=== PATIENT | male | born 1960 | race Caucasian/White ===

== ENCOUNTER → 2017-08-29 10:48 | Outpatient (CLI) | payer OTHER, SELFPAY ==
--- NOTE | 2017-08-29 10:57 | XR_ITS ---
XR sinus min 3V CLINICAL INDICATION: Chronic rhinitis, congestion ITS.REASON: CHRONIC RHINITIS ORDERING PHYSICIAN: Tushar Marlow MD PATIENT AGE: 57 years COMPARISON: None FINDINGS: There is mild mucoperiosteal thickening of the lateral wall the maxillary sinuses. No air-fluid levels are evident. No bony destructive process. IMPRESSION: Mild Ashwini periosteal thickening of the maxillary sinuses which may be due to mild sinus inflammatory changes otherwise negative
== END ==
PROVIDERS: PCP Family Medicine; Visit Provider Family Medicine
DX: J31.0 Chronic rhinitis (principal)
CPT/HCPCS: 70220

== ENCOUNTER → 2017-09-11 07:55 | Outpatient (CLI) | payer OTHER, SELFPAY ==
--- NOTE | 2017-09-11 07:59 | CT_ITS ---
CT sinus wo con CLINICAL INDICATION: Recurrent sinusitis ITS.REASON: RHINITIS, ABN PARANASAL XRAY ORDERING PHYSICIAN: Tushar Marlow MD PATIENT AGE: 57 years COMPARISON: 08/29/2017 TECHNIQUE:Axial, sagittal, and coronal images are generated and reviewed without contrast. All CT scans at the facility use one or more dose reduction, viz: automated exposure control; ma/kV adjustment per patient size (including targeted exams where dose is matched to indication; i.e. head); or iterative reconstruction technique. FINDINGS: There is moderate mucosal thickening of the posterior ethmoid air cells slightly more extensive on the right. Moderate mucosal thickening involves the right maxillary sinus posteriorly with an air-fluid level in the left maxillary sinus. The ostiomeatal complexes are patent. There are small bilateral gallo bullosa. There is rightward nasal septal deviation in inferiorly and anteriorly causing nasal canal narrowing on the right. No polyps or mass is apparent. The frontal sinuses are unremarkable. There is minimal mucosal thickening of the There is fluid noted in both mastoid sinuses. Fluid is present in the left mastoid. Fluid also noted within the middle ears on both sides and in the epitympanic region. Unremarkable orbits. Scattered small nodes are present in the neck. There is mild prominence of the adenoids. IMPRESSION: 1. Paranasal sinus disease with mucosal thickening of the ethmoid and maxillary sinus and air-fluid level left maxillary sinus. 2. Bilateral mastoid and epitympanic fluid 3. Narrowing of the right nasal canal due to septal deviation inferiorly and anteriorly
== END ==
PROVIDERS: Family Provider Family Medicine; PCP Family Medicine; Visit Provider Family Medicine
DX: J31.0 Chronic rhinitis (principal); R93.8 Abnormal findings on diagnostic imaging of other specified body structures
CPT/HCPCS: 70486

== ENCOUNTER → 2017-11-18 09:56 | Outpatient (POV) | payer OTHER, SELFPAY | PROVIDERS: Visit Provider Otolaryngology | DX: Z00.00 Encounter for general adult medical examination without abnormal findings (principal) ==

== ENCOUNTER → 2018-01-12 07:41 | Outpatient (CLI) | payer OTHER, SELFPAY ==
--- NOTE | 2018-01-12 07:56 | MR_ITS ---
MR knee RT wo con HISTORY: Knee pain and swelling with popping, medial pain ITS.REASON: RIGHT KNEE PAIN ORDERING PHYSICIAN: Rajiv Juarez PATIENT AGE: 57 years Comparison: None TECHNIQUE: Standard multiplanar multiecho sequences are performed without contrast. FINDINGS: The cruciate ligaments, collateral ligaments, patellar tendon, and quadriceps tendon are intact. A linear area of increased T2 signal involves the nature of 1 of the lateral meniscus but only needs the tibial articular surface on one image and does not meet strict MRI criteria for a meniscal tear not readily apparent in the orthogonal plane. Abnormal signal intensity involve the anterior horn of the medial meniscus with diffuse increased T2 signal. The meniscus has an abnormal contour centrally along the central margin of the meniscus is somewhat extruded medially as well. In addition, there is abnormal signal involving the posterior horn of the medial meniscus consistent with a nondisplaced longitudinal tear The patellar cartilage is well preserved. There is a small knee joint effusion. No abnormal bone marrow signal intensity. IMPRESSION: 1. Complex tear involves the anterior horn of the medial meniscus. 2. Oblique/longitudinal nondisplaced tear involves the posterior horn of the medial meniscus. 3. Grade 2 signal intensity of the anterior horn of the lateral meniscus but does not meet strict MRI criteria for meniscal tear. 4. Knee joint effusion IMPRESSION:
== END ==
PROVIDERS: Family Provider Family Medicine; PCP Family Medicine; Visit Provider Orthopaedic Surgery
DX: M25.561 Pain in right knee (principal)
CPT/HCPCS: 73721

== ENCOUNTER → 2018-11-17 09:57 | Outpatient (POV) | payer OTHER, SELFPAY | PROVIDERS: Visit Provider Dermatology | DX: Z00.00 Encounter for general adult medical examination without abnormal findings (principal) ==

== ENCOUNTER 2019-01-02 13:45 | Observation (INO) ==
--- NOTE | 2019-01-02 13:56 | Emergency Department Note ---
ED Disposition Clinical Impression: Angina pectoris Disposition: Admitted As Inpatient Condition on Discharge: Good Referrals: Provider,Referral, [Primary Care Provider] - - Critical Care Critical Care Time: No Attestation: On , the high probability of a clinically significant, sudden or life threa tening deterioration of the following system(s) required my full and direct attention, intervention and personal management. The time I documented below is in addition to time spent performing reported procedures but includes the following listed in this critical care notation. Medical Decision Making - Juan Inquiry Pt receiving controlled substance: No Vital Signs: 01/02/19 13:49 01/02/19 14:53 Temperature 98.0 F Temperature Source Oral Pulse Rate [Right Radial] 72 68 Respiratory Rate 18 18 Blood Pressure [Right Arm] 137/78 133/76 Blood Pressure Mean [Right Arm] 97 95 Blood Pressure Source [Right Arm] Automatic Cuff Automatic Cuff Blood Pressure Position [Right Arm] Sitting Sitting 02 Sat by Pulse Oximetry 97 96 Oxygen Delivery Method Room Air Room Air - Lab Data Lab Results 01/02/19 13:50: WBC 9.0, RBC 4.92, Hgb 15.0, Hct 43.9, MCV 89.1, MCH 30.4, MCHC 34.2, RDW 13.0, Plt Count 262, MPV 7.3 L, Neut % (Auto) 55.9, Lymph % (Auto) 32.8, [place] % (Auto) 6.3, Eos % (Auto) 4.3, Baso % (Auto) 0.7, Neut # (Auto) 5.0, Lymph # (Auto) 3.0, [place] # (Auto) 0.6, Eos # (Auto) 0.4, Baso # (Auto) 0.1 01/02/19 13:50: Sodium 139, Potassium 4.0, Chloride 103, Carbon Dioxide 28, Anion Gap 12.0, BUN 17, Creatinine 1.26, Estimated Creat Clear 102, Estimated GFR 59, Est GFR ( Amer) 71, Glucose 110 H, Calcium 9.4, Troponin I < 0.02 Result diagrams: 01/02/19 13:50 01/02/19 13:50 Orders (Tests/Meds): ED MEDICATIONS Generic Name Dose Route Start Last Admin Trade Name Freq PRN Reason Stop Dose Admin Enoxaparin Sodium 110 mg 01/02/19 21:00 Lovenox 120mg/0.8ml Syringe SQ 02/01/19 20:59 BID VANDANA Nitroglycerin 1 gm 01/02/19 15:00 Nitroglycerin 1 Inch Oint Udp TD 02/01/19 14:59 Q6H VANDANA Discontinued Medications Generic Name Dose Route Start Last Admin Trade Name Pippa PRN Reason Stop Dose Admin Aspirin 243 mg 01/02/19 13:56 01/02/19 14:07 Aspirin 81mg Chewable Tablet PO 01/02/19 13:57 243 mg ONCE ONE Administration - Radiology Data #1 Image(s): Chest Image Reviewed: Yes I reviewed the patient's radiology image Preliminary Findings: Normal/NAD - ECG Data Tracing #1 EKG interpreted by Mikel Lobo MD: Rhythm: sinus Rate: 69 [place]: normal Ectopy: none Conduction: First-degree AV block ST Segment Changes: none T Wave Changes: none Q Waves: Septal, old No evidence of acute ischemia or injury - Physician Consults Physician Consulted: Kirt Time: 14:53 Reason -: Cardiology Eval/Care, Neurological Eval/Care Comment/Response: Admit. Start on Lovenox and Nitropaste. Plan is for heart cath Friday. Additional Consult: Bertha Marlow Time: 14:59 Reason -: Admission Comment/Response: Agrees to admit the patient to the hospital. We discussed the patient's clinical information, including history, exam, laboratory and radiology results and ED course. Per hospital procedure, I will write temporary bridge inpatient orders on the patient. Specific orders requested by the admitting physician: Per cardiology - Reevaluation(s) Time: 14:40 Reevaluation #1: Intermittent brief chest pains and shortness of breath. No current chest pain. - ARIANNA Score for Non-Stemi Age of Patient: 50-59 years old Heart Rate: 70-89 bpm Systolic Blood Pressure: 120-139 mmhg Serum Creatinine: 1.20-1.59 mg/dl CHF [place] Class: I-No CHF Other Risk Factors: None Non-Stemi Risk Score: 94 General Adult HPI - General Stated complaint: chest pain Time Seen by Provider: 01/02/19 14:15 - History of Present Illness HPI narrative: States developed chest pressure and shortness of breath at 11 [address] Pressure lasted for couple of hours. Took 2 nitroglycerin and 15 minutes after the second when the pain went away while on the way here. Has had some intermittent shortness of breath since then. Chest discomfort felt similar to when he had a heart attack in July. He had been visiting [place] when he had his heart attack and was treated there. He says he had one stent placed [place]". States he was told he also has some less severe blockages that would need to be addressed in the future. He has had some intermittent chest pain since then but not to this extent. He sees Dr. Moralez here and has been seen within the past week or so. Prior to having his heart attack he had no known heart problems. He did have hyperlipidemia. He is a former smoker. His father has had heart disease. Father had heart attacks at about his age. - Related Data Home Medications Medication Instructions Recorded Confirmed aspirin 81 mg tablet,delayed 81 mg PO DAILY 07/28/18 01/02/19 release lisinopril 5 mg tablet 5 mg PO DAILY 07/28/18 01/02/19 metoprolol tartrate 25 mg tablet 25 mg PO BID 07/28/18 01/02/19 nitroglycerin 0.4 mg sublingual 0.4 mg SUBLINGUAL Q5-15M PRN 07/28/18 01/02/19 tablet pantoprazole 40 mg tablet,delayed 40 mg PO DAILY 07/28/18 01/02/19 release ticagrelor 90 mg tablet 90 mg PO BID 07/28/18 01/02/19 coenzyme Q10 100 mg capsule 100 mg PO DAILY 08/25/18 01/02/19 rosuvastatin 20 mg tablet 20 mg PO DAILY 12/22/18 01/02/19 Isosorbide Mononitrate [Imdur 30mg 30 mg PO DAILY 01/02/19 01/02/19 ER tablet] Montelukast Sodium [Singulair 10mg 10 mg PO PM 01/02/19 01/02/19 tablet] Allergies Allergy/AdvReac Type Severity Reaction Status Date / Time No Known Allergies Allergy Verified 12/22/18 10:47 [facility] History - Hepatitis A Screen Attestation statement:: This patient has been screened for Hepatitis A risk factors. I have reviewed the patient's past medical history: Yes Medical History: Reports:: Coronary Artery Disease, Gastroesophageal Reflux Disease(GERD), Hyperlipidemia, Hypertension, Myocardial Infarction Laterality Cases: Other Surgeries: Yes: Cardiac Catheterization, Coronary Stent - Social History Smoking Status: Former smoker Alcohol Intake: never Substance Use Type: denies use Occupational Status: employed Family Hx:: Coronary Artery Disease, Heart Attack Comment: Father-CAD,AR@58 ROS Obtained: Yes All systems reviewed & no additional complaints - Cardiovascular Cardiovascular: Reports chest pain, Denies diaphoresis - Respiratory Respiratory: Yes dyspnea - Gastrointestinal Gastrointestingal: Denies: abdominal pain, nausea, vomiting Physical Exam - General General appearance: alert, in no apparent distress - Head Head exam: atraumatic, normocephalic - Eye Eye exam: Present: normal appearance, EOMI - ENT ENT exam: Present: mucous membranes moist - Neck Neck exam: Present: normal inspection, trachea midline - Chest Chest inspection: Present: normal inspection, symmetric chest wall rise - Respiratory Respiratory exam: Present: normal lung sounds bilaterally. Absent: respiratory distress - Cardiovascular Cardiovascular exam: Present: regular rate, normal rhythm, normal heart sounds - Abdominal Exam Abdominal exam: Present: soft, normal bowel sounds. Absent: distention, tenderness - Extremities Exam Extremities exam: Present: normal inspection, full ROM. Absent: tenderness, calf tenderness - Neurological Exam Neurological exam: Present: alert, oriented X3 - Psychiatric Psychiatric exam: Present: normal affect, normal mood - Skin Skin exam: Present: warm, dry
[2019-01-02 14:13] LABS: Basophils # 0.1 K/mm3 (0-0.2); Basophils % 0.7 % (0.1-2.0); Eosinophils # 0.4 K/mm3 (0.0-0.4); Eosinophils % 4.3 % (0.1-12.0); Hematocrit 43.9 % (42.0-52.0); Lymphocytes % 32.8 % (10-50); Mean Corpuscular HGB Conc 34.2 g/dL (31.8-35.4); Mean Corpuscular Volume 89.1 fl (80-94); Mean Platelet Volume 7.3 fl (7.4-10.4); Monocytes # 0.6 K/mm3 (0.1-1.0); Monocytes % 6.3 % (1.7-9.3); Neutrophils % 55.9 % (37.0-80.0); Platelet Count 262 K/mm3 (142-424); Red Blood Count 4.92 M/mm3 (4.60-6.20)
[2019-01-02 14:19] LABS: Blood Urea Nitrogen 17 mg/dL (7-18); Calcium 9.4 mg/dL (8.5-10.1); Carbon Dioxide 28 mmol/L (21.0-32.0); Chloride 103 mmol/L (98-107); Glucose 110 mg/dL (74-106); Sodium 139 mmol/L (136-145)
--- NOTE | 2019-01-03 09:21 | Pharmacy Consult Notes ---
[facility] Pharmacy VTE Monitoring - Patient Demographics Admission date: 01/02/19 Report Date: 01/03/19 Time: 09:21 Allergies/Adverse Reactions: Patient Allergies No Known Allergies Allergy (Verified 12/22/18 10:47) Height: 1.91 m Weight: 110.393 kg Patient Problems: Current Active Problems Angina pectoris (Acute) - VTE Risk Labs: VTE Related Lab Results Hgb 15.0 g/dL (14.1-18.0) 01/02/19 13:50 Hct 43.9 % (42.0-52.0) 01/02/19 13:50 Plt Count 262 K/mm3 (142-424) 01/02/19 13:50 BUN 17 mg/dL (7-18) 01/02/19 13:50 Creatinine 1.26 mg/dL (0.70-1.30) 01/02/19 13:50 Estimated Creat Clear 102 mL/min (50-200) 01/02/19 13:50 Was VTE Risk Assessment Performed: Yes VTE Score: 2 VTE Risk Level: Low Risk - Prophylaxis VTE Prophylaxis Ordered?: Yes Types of VTE Prophylaxis: Pharmacological Pharmacologic Type: Enoxaparin
--- NOTE | 2019-01-03 12:27 | Progress Note ---
Internal Medicine - PN: Subj *Date: 01/03/19 *Time: 12:23 Interval history: This 58-year-old white male has known coronary artery disease. He was being active yesterday out in the field with his hunting dog. He was driving back from that experience and began to have substernal chest pain. He felt short of breath. He did not have diaphoresis. He did not have radiation to the jaw. He took several doses of Dr. flores, initially with no improvement but by the time he arrived in the emergency room he was not having pain. His chest discomfort did remind him of his symptoms when he had a heart attack in July 2018 while he was out [place] in [place]. He required a stent to the LAD at that time. He has been followed subsequently by Dr. Moralez. Dr. Moralez is aware of this admission and plans to do cardiac catheterization in the morning with possible additional stent placements. The patient has been quite comfortable since his admission and is in no acute distress at present. Exam Vital signs and Labs for Last 24 Hours: Temp Pulse Resp BP Pulse Ox 98.0 F 69 18 146/80 H 97 01/03/19 08:00 01/03/19 08:00 01/03/19 08:00 01/03/19 08:00 01/03/19 08:00 Laboratory Results - last 24 hr 01/02/19 13:50: WBC 9.0, RBC 4.92, Hgb 15.0, Hct 43.9, MCV 89.1, MCH 30.4, MCHC 34.2, RDW 13.0, Plt Count 262, MPV 7.3 L, Neut % (Auto) 55.9, Lymph % (Auto) 32.8, [place] % (Auto) 6.3, Eos % (Auto) 4.3, Baso % (Auto) 0.7, Neut # (Auto) 5.0, Lymph # (Auto) 3.0, [place] # (Auto) 0.6, Eos # (Auto) 0.4, Baso # (Auto) 0.1 01/02/19 13:50: Sodium 139, Potassium 4.0, Chloride 103, Carbon Dioxide 28, Anion Gap 12.0, BUN 17, Creatinine 1.26, Estimated Creat Clear 102, Estimated GFR 59, Est GFR ( Amer) 71, Glucose 110 H, Calcium 9.4, Troponin I < 0.02 01/02/19 18:30: Troponin I < 0.02 01/02/19 21:30: Troponin I < 0.02 I & O for Last 24 hours: Intake & Output 01/01/19 01/02/19 01/03/19 01/04/19 11:59 11:59 11:59 11:59 Intake Total 730 / 730 Balance 730 / 730 Weight 243 lb 5.998 oz
--- NOTE | 2019-01-03 12:32 | History & Physical Report ---
*Admission Date: 01/02/19 *Chief complaint: Chest pain *History of present illness: This 58-year-old white male has known coronary artery disease. He was being active yesterday, out in the field with his hunting dog. He was driving back from that experience and began to have substernal chest pain. He felt short of breath. He did not have diaphoresis. He did not have radiation to the jaw. He took several doses of nitroglycerin, initially with no improvement but by the time he arrived in the emergency room he was not having pain. His chest discomfort did remind him of his symptoms when he had a heart attack in July 2018 while he was [place] in [place]. At that event he required airlift ing to a hospital for stenting of the LAD. He has been followed subsequently by Dr. Álvaro Moralez. Dr. Moralez is aware of this admission and plans to do cardiac catheterization in the morning with possible stent placement. The patient has been quite comfortable since his admission and is in no acute distress at present. [facility] History Medical History: Reports:: Coronary Artery Disease, Gastroesophageal Reflux Disease(GERD), Hyperlipidemia, Hypertension, Myocardial Infarction Denies:: Cancer, Diabetes Mellitus Type 1, Diabetes Mellitus Type 2, MRSA *Have you ever received a pneumonia vaccine?: No *Have you received a flu vaccine this season?: Yes Laterality Cases: Right: Arthroscopy Knee (01/2018) Other Surgeries: Yes: Cardiac Catheterization, Coronary Stent (07/2018), Hernia Repair (2007), Other (KNEE SX,) Amputation: No - *Social History Smoking Status: Former smoker (13 years, up to 4ppd, quit 30 yrs ago) Tobacco Type: cigarettes # Packs/Day (cigarettes): 1 #Yrs smoked (if former smoker): 5 Smoking End Date: 30 YRS AGO Alcohol Intake: never Substance Use Type: denies use *Occupational Status:: employed Housing: house Household Members: spouse *Travel in the last 8 weeks: None Family Hx:: Coronary Artery Disease, Heart Attack Review of Systems - Constitutional Denies body ache(s), Denies chills - Eyes Denies blurry vision, Denies change in vision - ENT Denies difficulty swallowing - *Cardiovascular Reports chest pain, Reports shortness of breath, Denies irregular heart rhythm - *Respiratory Denies chest congestion, Denies cough - *Gastrointestinal Denies abdominal pain, Denies change in bowel habits - *Genitourinary Denies difficulty urinating - *Musculoskeletal Denies abnormal walking, Denies body aches - *Neurologic Denies unsteadiness - Psychiatric Denies abnormal sleep pattern, Denies anxiety Meds Home Medications Medication Instructions Recorded Confirmed Type aspirin 81 mg tablet,delayed 81 mg PO DAILY 07/28/18 01/02/19 History release lisinopril 5 mg tablet 5 mg PO DAILY 07/28/18 01/02/19 History metoprolol tartrate 25 mg tablet 25 mg PO BID 07/28/18 01/02/19 History nitroglycerin 0.4 mg sublingual 0.4 mg SUBLINGUAL Q5-15M PRN 07/28/18 01/02/19 History tablet pantoprazole 40 mg tablet,delayed 40 mg PO DAILY 07/28/18 01/02/19 History release ticagrelor 90 mg tablet 90 mg PO BID 07/28/18 01/02/19 History coenzyme Q10 100 mg capsule 100 mg PO DAILY 08/25/18 01/02/19 History rosuvastatin 20 mg tablet 20 mg PO DAILY 12/22/18 01/02/19 History Montelukast Sodium [Singulair 10mg 10 mg PO PM 01/02/19 01/02/19 History tablet] RX: Isosorbide Mononitrate [Imdur 30 mg PO DAILY 01/02/19 01/02/19 History 30mg ER tablet] Allergies Allergy/AdvReac Type Severity Reaction Status Date / Time No Known Allergies Allergy Verified 12/22/18 10:47 Exam Vital signs and Labs for Last 24 Hours: Temp Pulse Resp BP Pulse Ox 98.0 F 69 18 146/80 H 97 01/03/19 08:00 01/03/19 08:00 01/03/19 08:00 01/03/19 08:00 01/03/19 08:00 Laboratory Results - last 24 hr 01/02/19 13:50: WBC 9.0, RBC 4.92, Hgb 15.0, Hct 43.9, MCV 89.1, MCH 30.4, MCHC 34.2, RDW 13.0, Plt Count 262, MPV 7.3 L, Neut % (Auto) 55.9, Lymph % (Auto) 32.8, [place] % (Auto) 6.3, Eos % (Auto) 4.3, Baso % (Auto) 0.7, Neut # (Auto) 5.0, Lymph # (Auto) 3.0, [place] # (Auto) 0.6, Eos # (Auto) 0.4, Baso # (Auto) 0.1 01/02/19 13:50: Sodium 139, Potassium 4.0, Chloride 103, Carbon Dioxide 28, Anion Gap 12.0, BUN 17, Creatinine 1.26, Estimated Creat Clear 102, Estimated GFR 59, Est GFR ( Amer) 71, Glucose 110 H, Calcium 9.4, Troponin I < 0.02 01/02/19 18:30: Troponin I < 0.02 01/02/19 21:30: Troponin I < 0.02 I & O for Last 24 hours: Intake & Output 01/01/19 01/02/19 01/03/19 01/04/19 11:59 11:59 11:59 11:59 Intake Total 730 / 730 Balance 730 / 730 Weight 243 lb 5.998 oz - Constitutional no acute distress - *Routine HEENT Exam Head: Present: normocephalic Eye: Present: PERRL ENT: Present: mucous membranes moist - *Routine Neck Exam Present: supple. Absent: carotid bruit - Routine Chest/Breast/Axilla Exam Chest wall: Absent: tenderness Axillae: Absent: lymphadenopathy - *Routine Respiratory Exam Present: CTA bilaterally - *Routine Cardiovascular Exam Present: RRR (Distant heart sounds) - *Routine Abdominal Exam Present: soft. Absent: tenderness - *Routine Extremities Exam Absent: edema - *Routine Skin Exam Present: intact - *Routine Neurological Exam Present: alert, oriented X3 H&P: Result - Imaging and Cardiology EKG Status: image reviewed by me Assessment and Plan (1) Angina pectoris Current visit: Yes Status: Acute Category: Medical Code(s): I20.9 - Angina pectoris, unspecified (2) CAD (coronary artery disease) Current visit: No Status: Chronic Qualifiers: Coronary Disease-Associated Artery/Lesion type: [place] artery [place] vs. transplanted heart: [place] heart Associated angina: with other forms of angina Qualified Code(s): I25.118 - Atherosclerotic heart disease of [place] coronary artery with other forms of angina pectoris Category: Medical Code(s): I25.10 - Atherosclerotic heart disease of [place] coronary artery without angina pectoris (3) HLD (hyperlipidemia) Current visit: No Status: Chronic Qualifiers: Hyperlipidemia type: mixed hyperlipidemia Qualified Code(s): E78.2 - Mixed hyperlipidemia Category: Medical Code(s): E78.5 - Hyperlipidemia, unspecified (4) HTN (hypertension) Current visit: No Status: Chronic Qualifiers: Hypertension type: essential hypertension Qualified Code(s): I10 - Essential (primary) hypertension Category: Medical Code(s): I10 - Essential (primary) hypertension - Assessment and plan all Dx Assessment and Plan for all problems:: See orders. Dr. Moralez is aware of his admission. Cardiac catheterization is planned for the morning.
--- NOTE | 2019-01-04 08:28 | Consult Report ---
History of Present Illness Consult date: 01/04/19 Requesting physician: Tushar Marlow Consult reason: chest pain Chief complaint: chest pain Additional Medical History:: 1. CAD A. MO, 07/2018, ANTHONY to LAD 2. HTN 3. HLD 4. GERD History of present illness: This 58-year-old white male has known coronary artery disease. He was being active yesterday, out in the field with his hunting dog. He was driving back from that experience and began to have substernal chest pain. He felt short of breath. He did not have diaphoresis. He did not have radiation to the jaw. He took several doses of nitroglycerin, initially with no improvement but by the time he arrived in the emergency room he was not having pain. His chest discomfort did remind him of his symptoms when he had a heart attack in July 2018 while he was hunting [facility] in [place]. At that event he required airlifting to a hospital for stenting of the LAD. He has been followed subsequently by Dr. Álvaro Moralez. Dr. Moralez is aware of this admission and plans to do cardiac catheterization in the morning with possible stent placement. The patient has been quite comfortable since his admission and is in no acute distress at present The above per Dr. Marlow No further chest pain since admission. Pt was offered repeat C earlier this year for similar symptoms but wanted to continue medical therapy. This time he is willing to proceed with cardiac cath to evaluate his remaining blockages noted on prior cath at the time of his MO. EKG this admission is NSR with no acute ST segment changes. Troponins have returned normal X 3. [facility] History Medical History: Reports:: Coronary Artery Disease, Gastroesophageal Reflux Disease(GERD), Hyperlipidemia, Hypertension, Myocardial Infarction Denies:: Cancer, Diabetes Mellitus Type 1, Diabetes Mellitus Type 2, MRSA *Have you ever received a pneumonia vaccine?: No *Have you received a flu vaccine this season?: Yes Laterality Cases: Right: Arthroscopy Knee (01/2018) Other Surgeries: Yes: Cardiac Catheterization, Coronary Stent (07/2018), Hernia Repair (2007), Other (KNEE SX,) Amputation: No - *Social History Smoking Status: Former smoker (13 years, up to 4ppd, quit 30 yrs ago) Tobacco Type: cigarettes # Packs/Day (cigarettes): 1 #Yrs smoked (if former smoker): 5 Smoking End Date: 30 YRS AGO Alcohol Intake: never Substance Use Type: denies use *Occupational Status:: employed Housing: house Household Members: spouse *Travel in the last 8 weeks: None Family Hx:: Coronary Artery Disease, Heart Attack Meds Home Medications Medication Instructions Recorded Confirmed Type aspirin 81 mg tablet,delayed 81 mg PO DAILY 07/28/18 01/02/19 History release lisinopril 5 mg tablet 5 mg PO DAILY 07/28/18 01/02/19 History metoprolol tartrate 25 mg tablet 25 mg PO BID 07/28/18 01/02/19 History nitroglycerin 0.4 mg sublingual 0.4 mg SUBLINGUAL Q5-15M PRN 07/28/18 01/02/19 History tablet pantoprazole 40 mg tablet,delayed 40 mg PO DAILY 07/28/18 01/02/19 History release ticagrelor 90 mg tablet 90 mg PO BID 07/28/18 01/02/19 History coenzyme Q10 100 mg capsule 100 mg PO DAILY 08/25/18 01/02/19 History rosuvastatin 20 mg tablet 20 mg PO DAILY 12/22/18 01/02/19 History Isosorbide Mononitrate [Imdur 30mg 30 mg PO DAILY 01/02/19 01/02/19 History ER tablet] Montelukast Sodium [Singulair 10mg 10 mg PO PM 01/02/19 01/02/19 History tablet] Allergies Allergy/AdvReac Type Severity Reaction Status Date / Time No Known Allergies Allergy Verified 12/22/18 10:47 Review of Systems - *Cardiovascular Reports chest pain, Reports shortness of breath - *Respiratory Reports shortness of breath, Denies cough - *Gastrointestinal Denies abdominal pain, Denies vomiting - *Genitourinary Denies blood in urine - *Musculoskeletal Denies joint pain, Denies back pain - *Neurologic Denies abnormal walking, Denies unsteadiness Exam Vital signs and Labs for Last 24 Hours: Temp Pulse Resp BP Pulse Ox 98.1 F 57 L 18 110/67 95 01/04/19 04:00 01/04/19 04:00 01/04/19 04:00 01/04/19 04:00 01/04/19 04:00 I & O for Last 24 hours: Intake & Output 01/01/19 01/02/19 01/03/1919 11:59 11:59 11:59 11:59 Intake Total 730 / 730 480 / 480 Balance 730 / 730 480 / 480 Weight 243 lb 5.998 oz 243 lb 5.998 oz - *Routine HEENT Exam Head: Present: normocephalic Eye: Present: EOMI, PERRL ENT: Present: mucous membranes moist - *Routine Neck Exam Present: supple. Absent: JVD, carotid bruit - *Routine Respiratory Exam Present: CTA bilaterally. Absent: accessory muscle use, rales, rhonchi, wheezes - *Routine Cardiovascular Exam Present: RRR. Absent: murmur, gallop, rubs - *Routine Abdominal Exam Present: soft. Absent: tenderness, distended, guarding - *Routine Extremities Exam Absent: edema, calf tenderness - *Routine Neurological Exam Present: alert, oriented X3, moving all extremities Assessment and Plan (1) Angina pectoris Current visit: Yes Status: Acute Category: Medical Code(s): I20.9 - Angina pectoris, unspecified (2) CAD (coronary artery disease) Current visit: No Status: Chronic Qualifiers: Qualified Code(s): I25.118 - Atherosclerotic heart disease of [place] coronary artery with other forms of angina pectoris Category: Medical Code(s): I25.10 - Atherosclerotic heart disease of [place] coronary artery without angina pectoris (3) HLD (hyperlipidemia) Current visit: No Status: Chronic Qualifiers: Qualified Code(s): E78.2 - Mixed hyperlipidemia Category: Medical Code(s): E78.5 - Hyperlipidemia, unspecified (4) HTN (hypertension) Current visit: No Status: Chronic Qualifiers: Qualified Code(s): I10 - Essential (primary) hypertension Category: Medical Code(s): I10 - Essential (primary) hypertension - Assessment and plan all Dx Assessment and Plan for all problems:: 1. Recurrent angina pectoris despite DAPT and two anti-anginal meds in a patient with known residual CAD after ANTHONY to LAD at time of MO in 07/2018. Recommend [facility] to reassess CAD today. 2. Further recommendations to follow.
--- NOTE | 2019-01-04 08:33 | Progress Note ---
Internal Medicine - PN: Subj *Date: 01/04/19 *Time: 08:31 Interval history: Patient did admit to chest pain which she describes as pressure about 5 AM this morning. He states he was somewhat short of breath with this. He is comfortable at present. He had a good day yesterday with periodic chest discomfort as above. He ate without difficulty. He has been up in the room without problems. Cardiology has seen him now and plans for cardiac cath. Exam Vital signs and Labs for Last 24 Hours: Temp Pulse Resp BP Pulse Ox 98.1 F 57 L 18 110/67 95 01/04/19 04:00 01/04/19 04:00 01/04/19 04:00 01/04/19 04:00 01/04/19 04:00 I & O for Last 24 hours: Intake & Output 01/01/19 01/02/19 01/03/19 01/04/19 11:59 11:59 11:59 11:59 Intake Total 730 / 730 480 / 480 Balance 730 / 730 480 / 480 Weight 243 lb 5.998 oz 243 lb 5.998 oz - Constitutional no acute distress Comments: He has eaten breakfast. He is in no acute distress and appears comfortable. - *Routine Respiratory Exam Present: CTA bilaterally (Anteriorly and posteriorly) - *Routine Cardiovascular Exam Present: RRR - *Routine Abdominal Exam Present: soft, normoactive bowel sounds. Absent: tenderness - *Routine Extremities Exam Absent: edema, calf tenderness - *Routine Neurological Exam Present: alert, oriented X3 Assessment and Plan (1) Angina pectoris Current visit: Yes Status: Acute Category: Medical Code(s): I20.9 - Angina pectoris, unspecified (2) CAD (coronary artery disease) Current visit: No Status: Chronic Qualifiers: Coronary Disease-Associated Artery/Lesion type: [place] artery [place] vs. transplanted heart: [place] heart Associated angina: with other forms of angina Qualified Code(s): I25.118 - Atherosclerotic heart disease of [place] coronary artery with other forms of angina pectoris Category: Medical Code(s): I25.10 - Atherosclerotic heart disease of [place] coronary artery without angina pectoris (3) HLD (hyperlipidemia) Current visit: No Status: Chronic Qualifiers: Hyperlipidemia type: mixed hyperlipidemia Qualified Code(s): E78.2 - Mixed hyperlipidemia Category: Medical Code(s): E78.5 - Hyperlipidemia, unspecified (4) HTN (hypertension) Current visit: No Status: Chronic Qualifiers: Hypertension type: essential hypertension Qualified Code(s): I10 - Essential (primary) hypertension Category: Medical Code(s): I10 - Essential (primary) hypertension - Assessment and plan all Dx Assessment and Plan for all problems:: Patient will have a cardiac cath today
--- NOTE | 2019-01-04 19:17 | Progress Note ---
Internal Medicine - PN: Subj *Date: 01/04/19 *Time: 19:14 Interval history: DATE OF CATHETERIZATION:01/04/2019 12:23 PM PROCEDURES: 1. Left heart catheterization 2. Left ventriculogram 3. Selective coronary angiogram 4. Drug-eluting stent deployment to the mid circumflex artery 5. Drug-eluting stent deployment to the mid LAD He is stable and comfortable status post his stenting and catheterization. He is anxious to go home and cardiology said he could be discharged. He has shown some sinus variability on the monitor with variation in complex configuration. Dr. Marlow recommended an overnight stay and discharge in the morning. He and his are comfortable with this. Exam Vital signs and Labs for Last 24 Hours: Temp Pulse Resp BP Pulse Ox 98.1 F 74 16 119/59 L 96 01/04/19 08:22 01/04/19 19:00 01/04/19 19:00 01/04/19 19:00 01/04/19 19:00 Laboratory Results - last 24 hr 01/04/19 12:28: Activated Clotting Time > 400 H* I & O for Last 24 hours: Intake & Output 01/02/19 01/03/19 01/04/19 01/05/19 11:59 11:59 11:59 11:59 Intake Total 730 / 730 720 / 720 240 / 240 Balance 730 / 730 720 / 720 240 / 240 Weight 243 lb 5.998 oz 243 lb 5.998 oz - Constitutional no acute distress - *Routine Respiratory Exam Present: CTA bilaterally. Absent: respiratory distress - *Routine Cardiovascular Exam Present: RRR Comments: But with monitor variability as mentioned above. EKG was obtained and is good. - *Routine Extremities Exam Absent: edema Assessment and Plan (1) Angina pectoris Current visit: Yes Status: Acute Category: Medical Code(s): I20.9 - Angina pectoris, unspecified (2) CAD (coronary artery disease) Current visit: No Status: Chronic Qualifiers: Coronary Disease-Associated Artery/Lesion type: [place] artery [place] vs. transplanted heart: [place] heart Associated angina: with other forms of angina Qualified Code(s): I25.118 - Atherosclerotic heart disease of [place] coronary artery with other forms of angina pectoris Category: Medical Code(s): I25.10 - Atherosclerotic heart disease of [place] coronary artery without angina pectoris (3) HLD (hyperlipidemia) Current visit: No Status: Chronic Qualifiers: Hyperlipidemia type: mixed hyperlipidemia Qualified Code(s): E78.2 - Mixed hyperlipidemia Category: Medical Code(s): E78.5 - Hyperlipidemia, unspecified (4) HTN (hypertension) Current visit: No Status: Chronic Qualifiers: Hypertension type: essential hypertension Qualified Code(s): I10 - Essential (primary) hypertension Category: Medical Code(s): I10 - Essential (primary) hypertension - Assessment and plan all Dx Assessment and Plan for all problems:: Observe overnight post procedure. Likely discharge in the morning.
[2019-01-05 05:56] LABS: Basophils % 0.4 % (0.1-2.0); Eosinophils # 0.2 K/mm3 (0.0-0.4); Eosinophils % 3.1 % (0.1-12.0); Hematocrit 43.8 % (42.0-52.0); Hemoglobin 15.1 g/dL (14.1-18.0); Lymphocytes # 2.3 K/mm3 (0.7-4.5); Lymphocytes % 28.7 % (10-50); Mean Corpuscular HGB Conc 34.5 g/dL (31.8-35.4); Mean Corpuscular Volume 89.7 fl (80-94); Monocytes # 0.6 K/mm3 (0.1-1.0); Monocytes % 7.6 % (1.7-9.3); Neutrophils # 4.7 K/mm3 (1.8-7.8); Neutrophils % 60.2 % (37.0-80.0); Platelet Count 235 K/mm3 (142-424); Red Blood Count 4.89 M/mm3 (4.60-6.20); White Blood Count 7.8 K/mm3 (4.8-10.8)
[2019-01-05 06:02] LABS: Anion Gap 12.4 mEq/L (5-15); Calcium 9.2 mg/dL (8.5-10.1)
--- NOTE | 2019-01-05 08:31 | Progress Note ---
Subjective Date: 01/05/19 Time: 08:26 Principal diagnosis: UAP, s/p stenting Interval history: 58 yo WM in bed in NAD. No chest pain or SOA. Telemetry shows NSR with PAC's, couplets and triplets and PVC's. Wants to go home. Exam Vital signs and Labs for Last 24 Hours: Temp Pulse Resp BP Pulse Ox 98.6 F 70 18 131/81 99 01/05/19 07:44 01/05/19 07:58 01/05/19 07:44 01/05/19 07:44 01/05/19 07:44 Laboratory Results - last 24 hr 01/04/19 12:28: Activated Clotting Time > 400 H* 01/05/19 05:45: WBC 7.8, RBC 4.89, Hgb 15.1, Hct 43.8, MCV 89.7, MCH 30.9, MCHC 34.5, RDW 13.0, Plt Count 235, MPV 7.0 L, Neut % (Auto) 60.2, Lymph % (Auto) 28.7, [place] % (Auto) 7.6, Eos % (Auto) 3.1, Baso % (Auto) 0.4, Neut # (Auto) 4.7, Lymph # (Auto) 2.3, [place] # (Auto) 0.6, Eos # (Auto) 0.2, Baso # (Auto) 0.0 01/05/19 05:45: Sodium 140, Potassium 4.4, Chloride 104, Carbon Dioxide 28, Anion Gap 12.4, BUN 16, Creatinine 1.05, Estimated Creat Clear 120, Estimated GFR 73, Est GFR ( Amer) 88 D, Glucose 99, Calcium 9.2 I & O for Last 24 hours: Intake & Output 01/02/19 01/03/19 01/04/19 01/05/19 11:59 11:59 11:59 11:59 Intake Total 730 / 730 720 / 720 950 / 950 Output Total 450 / 450 Balance 730 / 730 720 / 720 500 / 500 Weight 243 lb 5.998 oz 243 lb 5.998 oz 243 lb - *Routine HEENT Exam Head: Present: normocephalic Eye: Present: EOMI, PERRL ENT: Present: mucous membranes moist - *Routine Respiratory Exam Present: CTA bilaterally. Absent: accessory muscle use, rales, rhonchi, wheezes - *Routine Cardiovascular Exam Present: RRR. Absent: murmur, gallop, rubs - *Routine Extremities Exam Absent: edema, calf tenderness - *Routine Neurological Exam Present: alert, oriented X3, moving all extremities Progress Note: A&P (1) Angina pectoris Status: Acute Current Visit: Yes (2) CAD (coronary artery disease) Status: Chronic Current Visit: No (3) HLD (hyperlipidemia) Status: Chronic Current Visit: No (4) HTN (hypertension) Status: Chronic Current Visit: No Assessment and Plan for All Diagnoses:: 1. Continue ASA, Brilinta, Isosorbide, lisinopril, metoprolol and statins as ordered. 2. OK for discharge home from cardiology standpoint. 3. With ectopy noted on telemetry, would consider 24-48 hr as outpatient to check for A. fib (not seen on telemetry here). 4. F/U in one week.
--- NOTE | 2019-01-05 09:20 | Progress Note ---
Internal Medicine - PN: Subj *Date: 01/05/19 *Time: 07:35 Interval history: Pt is sitting up in bed watching TV. He denies any pain, CP, or SOB. He is eating well and voiding normally. He is eager to go home. Exam Vital signs and Labs for Last 24 Hours: Temp Pulse Resp BP Pulse Ox 98.6 F 70 18 131/81 99 01/05/19 07:44 01/05/19 07:58 01/05/19 07:44 01/05/19 07:44 01/05/19 07:44 Laboratory Results - last 24 hr 01/04/19 12:28: Activated Clotting Time > 400 H* 01/05/19 05:45: WBC 7.8, RBC 4.89, Hgb 15.1, Hct 43.8, MCV 89.7, MCH 30.9, MCHC 34.5, RDW 13.0, Plt Count 235, MPV 7.0 L, Neut % (Auto) 60.2, Lymph % (Auto) 28.7, [place] % (Auto) 7.6, Eos % (Auto) 3.1, Baso % (Auto) 0.4, Neut # (Auto) 4.7, Lymph # (Auto) 2.3, [place] # (Auto) 0.6, Eos # (Auto) 0.2, Baso # (Auto) 0.0 01/05/19 05:45: Sodium 140, Potassium 4.4, Chloride 104, Carbon Dioxide 28, Anion Gap 12.4, BUN 16, Creatinine 1.05, Estimated Creat Clear 120, Estimated GFR 73, Est GFR ( Amer) 88 D, Glucose 99, Calcium 9.2 I & O for Last 24 hours: Intake & Output 01/02/19 01/03/19 01/04/19 01/05/19 11:59 11:59 11:59 11:59 Intake Total 730 / 730 720 / 720 950 / 950 Output Total 450 / 450 Balance 730 / 730 720 / 720 500 / 500 Weight 243 lb 5.998 oz 243 lb 5.998 oz 243 lb - Constitutional no acute distress - *Routine Respiratory Exam Present: CTA bilaterally - *Routine Cardiovascular Exam Present: RRR - *Routine Abdominal Exam Present: soft, normoactive bowel sounds. Absent: tenderness, distended, rebound, guarding, firm, rigid - *Routine Extremities Exam Present: full ROM, pulses intact. Absent: edema, calf tenderness - *Routine Neurological Exam Present: alert, oriented X3 Assessment and Plan (1) Angina pectoris Current visit: Yes Status: Acute Category: Medical Code(s): I20.9 - Angina pectoris, unspecified (2) CAD (coronary artery disease) Current visit: No Status: Chronic Qualifiers: Coronary Disease-Associated Artery/Lesion type: [place] artery [place] vs. transplanted heart: [place] heart Associated angina: with other forms of angina Qualified Code(s): I25.118 - Atherosclerotic heart disease of [place] coronary artery with other forms of angina pectoris Category: Medical Code(s): I25.10 - Atherosclerotic heart disease of [place] coronary artery without angina pectoris (3) HLD (hyperlipidemia) Current visit: No Status: Chronic Qualifiers: Hyperlipidemia type: mixed hyperlipidemia Qualified Code(s): E78.2 - Mixed hyperlipidemia Category: Medical Code(s): E78.5 - Hyperlipidemia, unspecified (4) HTN (hypertension) Current visit: No Status: Chronic Qualifiers: Hypertension type: essential hypertension Qualified Code(s): I10 - Essential (primary) hypertension Category: Medical Code(s): I10 - Essential (primary) hypertension - Assessment and plan all Dx Assessment and Plan for all problems:: Cardiology note seen and appreciated. Further per Dr. Marlow.
--- NOTE | 2019-01-05 22:01 | Discharge Summary ---
General - General Admission date:: 01/02/19 Discharge date: 01/05/19 HPI HPI: This 58-year-old white male has known coronary artery disease. He was being active yesterday, out in the field with his hunting dog. He was driving back from that experience and began to have substernal chest pain. He felt short of breath. He did not have diaphoresis. He did not have radiation to the jaw. He took several doses of nitroglycerin, initially with no improvement but by the time he arrived in the emergency room he was not having pain. His chest discomfort did remind him of his symptoms when he had a heart attack in July 2018 while he was hunting in [place]. At that event he required airlifting to a hospital for stenting of the LAD. He has been followed subsequently by Dr. Álvaro Moralez. Dr. Moralez is aware of this admission and plans to do cardiac catheterization in the morning with possible stent placement. The patient has been quite comfortable since his admission and is in no acute distress at present. Hospital Course Hospital Course: The patient's chest x-ray showed nothing acute. He had a heart cath on 01/04/2019 and received 2 stents. Cardiology recommended he continue with DAPT, aspirin, and Brilinta. He was stable and comfortable status post stent placement. He did show some sinus variability on the monitor with variation in complex configuration. Dr. Marlow kept the patient overnight for monitoring. Telemetry showed normal sinus rhythm with PACs and PVCs. The patient was anxious to go home and cardiology felt he was stable to be discharged. With the ectopy noted on telemetry, they wanted to consider a 24 to 48-hour Holter monitor as an outpatient to check for A. fib. They also wanted to follow-up with the patient in 1 week. The patient was stable to be discharged home. Objective Vital signs: Temp Pulse Resp BP Pulse Ox 98.6 F 70 18 131/81 99 01/05/19 07:44 01/05/19 07:58 01/05/19 07:44 01/05/19 07:44 01/05/19 07:44 Narrative: - Constitutional no acute distress - *Routine HEENT Exam Head: Present: normocephalic Eye: Present: PERRL ENT: Present: mucous membranes moist - *Routine Neck Exam Present: supple. Absent: carotid bruit - Routine Chest/Breast/Axilla Exam Chest wall: Absent: tenderness Axillae: Absent: lymphadenopathy - *Routine Respiratory Exam Present: CTA bilaterally - *Routine Cardiovascular Exam Present: RRR (Distant heart sounds) - *Routine Abdominal Exam Present: soft. Absent: tenderness - *Routine Extremities Exam Absent: edema - *Routine Skin Exam Present: intact - *Routine Neurological Exam Present: alert, oriented X3 Results Labs on day of discharge: Labs from last 24 hours 01/05/19 01/05/19 05:45 05:45 WBC 7.8 RBC 4.89 Hgb 15.1 Hct 43.8 MCV 89.7 MCH 30.9 MCHC 34.5 RDW 13.0 Plt Count 235 MPV 7.0 L Neut % (Auto) 60.2 Lymph % (Auto) 28.7 [place] % (Auto) 7.6 Eos % (Auto) 3.1 Baso % (Auto) 0.4 Neut # (Auto) 4.7 Lymph # (Auto) 2.3 [place] # (Auto) 0.6 Eos # (Auto) 0.2 Baso # (Auto) 0.0 Sodium 140 Potassium 4.4 Chloride 104 Carbon Dioxide 28 Anion Gap 12.4 BUN 16 Creatinine 1.05 Estimated Creat Clear 120 Estimated GFR 73 Est GFR ( Amer) 88 D Glucose 99 Calcium 9.2 DS: Diagnosis - Discharge Diagnosis (1) Angina pectoris Status: Acute (2) CAD (coronary artery disease) Status: Chronic (3) HLD (hyperlipidemia) Status: Chronic (4) HTN (hypertension) Status: Chronic Discharge Plan - Patient Discharge Instructions ACTIVITY: Continue current activity DIET: low fat, low cholesterol Patient Instructions: Heart-Healthy Diet, DI for Angina, DI for Cardiac Catheterization, DI for Coronary Stenting, DI for Surgical Site Infection, DI for Coronary Artery Disease - Follow up Plan Follow up with: Tushar Marlow MD [Primary Care Provider] - 01/13/19 2:45 pm Álvaro Moralez MD [Staff Physician] - 01/12/19 10:40 am Disposition: Home, Self-[facility] Medications: Home Medications Medication Instructions Recorded Confirmed Type aspirin 81 mg tablet,delayed 81 mg PO DAILY 07/28/18 01/02/19 History release lisinopril 5 mg tablet 5 mg PO DAILY 07/28/18 01/02/19 History metoprolol tartrate 25 mg tablet 25 mg PO BID 07/28/18 01/02/19 History nitroglycerin 0.4 mg sublingual 0.4 mg SUBLINGUAL Q5-15M PRN 07/28/18 01/02/19 History tablet pantoprazole 40 mg tablet,delayed 40 mg PO DAILY 07/28/18 01/02/19 History release ticagrelor 90 mg tablet 90 mg PO BID 07/28/18 01/02/19 History coenzyme Q10 100 mg capsule 100 mg PO DAILY 08/25/18 01/02/19 History Isosorbide Mononitrate [Imdur 30mg 30 mg PO DAILY 01/02/19 01/02/19 History ER tablet] Montelukast Sodium [Singulair 10mg 10 mg PO PM 01/02/19 01/02/19 History tablet] Rosuvastatin Calcium 20 mg PO DAILY #30 tab 01/05/19 Rx Prescriptions/Medication Reconciliation: Continued lisinopril 5 mg tablet 5 mg PO DAILY metoprolol tartrate 25 mg tablet 25 mg PO BID nitroglycerin 0.4 mg sublingual tablet 0.4 mg SUBLINGUAL Q5-15M PRN PRN Reason: Chest Pain pantoprazole 40 mg tablet,delayed release 40 mg PO DAILY ticagrelor 90 mg tablet 90 mg PO BID coenzyme Q10 100 mg capsule 100 mg PO DAILY aspirin 81 mg tablet,delayed release 81 mg PO DAILY Montelukast Sodium [Singulair 10mg tablet] 10 mg PO PM Isosorbide Mononitrate [Imdur 30mg ER tablet] 30 mg PO DAILY Rosuvastatin Calcium 20 mg PO DAILY #30 tab
== END 2019-01-05 09:59 | disposition home or self-care (01) ==
LOC: 2ND 13:45 → ER 13:45 → 2ND 15:50 → ICU 01-04 12:50
PROVIDERS: ADMIT Family Medicine; ATTEND Family Medicine
CPT/HCPCS: 36415; 71020; 71046; 80048; 84484; 85025; 85347; 92928; 93005; 93458; 99152; 99284; C1725; C1760; C1769; C1875; C9600; G0378; J1644; Q9967

== ENCOUNTER → 2019-01-06 10:39 | Outpatient (CLI) | payer OTHER, SELFPAY | PROVIDERS: PCP Family Medicine; Visit Provider Family Medicine | DX: I49.49 Other premature depolarization (principal) | CPT/HCPCS: 93225; 93226 ==

== ENCOUNTER → 2019-01-12 10:12 | Outpatient (CLI) | payer OTHER, SELFPAY ==
[2019-01-12 10:27] LABS: Basophils # 0.1 K/mm3 (0-0.2); Eosinophils # 0.2 K/mm3 (0.0-0.4); Eosinophils % 3.8 % (0.1-12.0); Hematocrit 42.4 % (42.0-52.0); Hemoglobin 14.4 g/dL (14.1-18.0); Lymphocytes # 1.9 K/mm3 (0.7-4.5); Lymphocytes % 31.6 % (10-50); Mean Corpuscular Hemoglobin 30.4 pg (27.0-31.2); Mean Corpuscular Volume 89.4 fl (80-94); Monocytes # 0.6 K/mm3 (0.1-1.0); Monocytes % 9.1 % (1.7-9.3); Neutrophils # 3.3 K/mm3 (1.8-7.8); Neutrophils % 54.6 % (37.0-80.0); Platelet Count 267 K/mm3 (142-424); Red Blood Count 4.74 M/mm3 (4.60-6.20)
[2019-01-12 10:46] LABS: Blood Urea Nitrogen 13 mg/dL (7-18); Calcium 9.2 mg/dL (8.5-10.1); Carbon Dioxide 30 mmol/L (21.0-32.0); Chloride 105 mmol/L (98-107); Estimated Glomerular Filt Rate 69 ml/min (>60); GFR (African American) 83 ML/MIN (>60); Glucose 91 mg/dL (74-106); Sodium 141 mmol/L (136-145)
[2019-01-12 14:10] LABS: Alanine Aminotransferase 40 U/L (12-78); Albumin Level 3.8 gm/dL (3.4-5.0); Alkaline Phosphatase 61 U/L (46-116); Aspartate Amino Transferase 19 U/L (15-37); Bilirubin,Direct 0.1 mg/dL (0.0-0.2); Bilirubin,Indirect 0.3 mg/dL (0.0-0.9); Bilirubin,Total 0.4 mg/dL (0.2-1.0); Chol/HDL Ratio 2.7 (1-3.5); Cholesterol 109 mg/dL (140-200); HDL Cholesterol 41 mg/dL (27-67); LDL Cholesterol 37 mg/dL (0-130); Total Protein,Serum 6.7 gm/dL (6.4-8.2); Triglycerides 154 mg/dL (30-200); VLDL Cholesterol 31 mg/dL (0-40)
[2019-01-12 14:11] LABS: C-Reactive Protein < 0.2 mg/dL (0.0-0.9)
[2019-01-12 15:00] LABS: Erythrocyte Sedimentation Rate 98 mm/hr (0-20)
[2019-01-12 18:06] LABS: Uric Acid 5.5 mg/dL (2.6-7.2)
[2019-01-14 13:09] LABS: Anti-Centromere B Antibodies <0.2 AI (0.0-0.9); Anti-Jo-1 <0.2 AI (0.0-0.9); Anti-Smith Antibody <0.2 AI (0.0-0.9); Antichromatin Antibodies 0.4 AI (0.0-0.9); Antiscleroderma-70 Antibodies <0.2 AI (0.0-0.9); RNP Antibodies <0.2 AI (0.0-0.9); Sjogren's Anti-SS-A <0.2 AI (0.0-0.9); Sjogren's Anti-SS-B <0.2 AI (0.0-0.9)
[2019-01-15 18:00] LABS: Anti-DNA (DS) Ab Qn 1 IU/mL (0-9); RA Latex Turbid. <10.0 IU/mL (0.0-13.9)
== END ==
PROVIDERS: Physician Assistant; Visit Provider Internal Medicine
DX: I25.10 Atherosclerotic heart disease of native coronary artery without angina pectoris (principal); E78.5 Hyperlipidemia, unspecified; R70.0 Elevated erythrocyte sedimentation rate
CPT/HCPCS: 36415; 80048; 80061; 80076; 84550; 85025; 85651; 86140; 86225; 86235; 86431

== ENCOUNTER → 2019-01-19 09:56 | Outpatient (CLI) | payer OTHER, SELFPAY ==
--- NOTE | 2019-01-19 09:57 | CA_ITS ---
APPROVED REPORT Intermission Coordinator: ARTHUR Laterality: Bilateral Study Quality: Excellent Indications: JANA CAD HTN HLP PREVIOUS SMOKER Risk Factors Hypertension: Hyperlipidemia Doppler Spectral Velocity Analysis ECA (R) 101.00/ cm/s ECA (L) 84.10/ cm/s dICA (R) 84.90/36.10 cm/s dICA (L) 71.70/33.70 cm/s [place] (R) 77.80/33.00 cm/s [place] (L) 82.50/33.60 cm/s pICA (R) 80.90/22.80 cm/s pICA (L) 76.20/30.70 cm/s dCCA (R) 104.00/28.30 cm/s dCCA (L) 88.80/27.50 cm/s pCCA (R) 124.00/26.70 cm/s pCCA (L) 91.90/19.60 cm/s Vert (R) 40.90/ cm/s Vert (L) 40.10/ cm/s ICA/CCA 0.82 ICA/CCA 0.93 Findings Duplex evaluation demonstrates stenosis of the right proximal internal carotid artery <20% with PSV <140 cm/sec, EDV <100 cm/sec, and IC/CC Ratio <4.0.Duplex evaluation demonstrates stenosis of the left proximal internal carotid artery <20% with PSV <140 cm/sec, EDV <100 cm/sec, and IC/CC Ratio <4.0.Antegrade flow seen bilateral vertebral arteries.Antegrade flow seen bilateral vertebral arteries. Conclusion Duplex evaluation demonstrates stenosis of the right proximal internal carotid artery <20% Duplex evaluation demonstrates stenosis of the left proximal internal carotid artery <20%. Antegrade flow seen bilateral vertebral arteries. Electronically signed by : Jeet Tsai MD 01/21/2019 11:04:32
[2019-01-29 10:37] LABS: Anti-DNA (DS) Ab Qn 1; RNP Antibodies <0.2
[2019-01-29 10:38] LABS: Antichromatin Antibodies 0.3; Sjogren's Anti-SS-A <0.2; Sjogren's Anti-SS-B <0.2
[2019-01-29 10:39] LABS: RA Latex Turbid. <10.0
== END ==
PROVIDERS: Physician Assistant; PCP Family Medicine; Visit Provider Internal Medicine
DX: I25.10 Atherosclerotic heart disease of native coronary artery without angina pectoris (principal); R42 Dizziness and giddiness
CPT/HCPCS: 36415; 86225; 86235; 86431; 93880

== ENCOUNTER → 2019-01-19 10:22 | Outpatient (CLI) | payer OTHER, SELFPAY | PROVIDERS: Visit Provider Physician Assistant | DX: R42 Dizziness and giddiness (principal); I25.118 Atherosclerotic heart disease of native coronary artery with other forms of angina pectoris; E78.2 Mixed hyperlipidemia; R94.31 Abnormal electrocardiogram [ECG] [EKG] | CPT/HCPCS: 36415; 86225; 86235; 86431 ==

== ENCOUNTER → 2019-12-06 14:12 | Outpatient (CLI) | payer OTHER, SELFPAY ==
--- NOTE | 2019-12-06 14:14 | XR_ITS ---
PROCEDURE: XR KNEE RT 4V CLINICAL INDICATION: right knee pain COMPARISON: No exams were available for comparison FINDINGS: No fracture or dislocation. No lytic or blastic change. There is normal mineralization. There are mild osteoarthritic changes involving all 3 compartments. Other findings:None. IMPRESSION: Mild osteoarthritis Dictated by: Jeet Tsai MD 12/06/2019 14:53 Electronically signed by Jeet Tsai MD in [place] 12/06/2019 14:53
== END ==
PROVIDERS: PCP Family Medicine; Visit Provider Orthopaedic Surgery
DX: M25.561 Pain in right knee (principal)
CPT/HCPCS: 73564

== ENCOUNTER → 2019-12-16 15:58 | Outpatient (CLI) | payer OTHER, SELFPAY ==
--- NOTE | 2019-12-16 15:58 | MR_ITS ---
PROCEDURE: MR KNEE RT WO CON CLINICAL INDICATION: right knee pain Right knee pain, prior right knee surgery with injury and pain, swelling COMPARISON: KNEERTWO MR knee RT wo con from 01/12/2018 FINDINGS: Cruciate ligaments, collateral ligaments, patellar tendon, and quadriceps tendon appear intact. There is slight increased T1 and T2 signal in the distal aspect of the quadriceps tendon which may be due to mild tendinopathy/tendinosis. The lateral meniscus is intact. The patient is reported to have had a prior meniscal surgery. There is increased T2 signal involving the anterior horn of the medial meniscus with abnormal meniscal contour presumed from a prior partial meniscectomy. A complex meniscal tear could have a similar appearance. Correlation with surgical history needed. Irregular T2 signal intensity also involves the posterior horn of the medial meniscus with both a longitudinal component and horizontal component indicating complex nondisplaced tear of the posterior horn of the medial meniscus. There is a small knee joint effusion. There is some mild lateral patellar subluxation with minimal thinning of the patellar cartilage. IMPRESSION: 1. Nondisplaced complex tear posterior horn medial meniscus. 2. Abnormal appearance of the anterior horn of the medial meniscus possibly due to prior meniscectomy. Complex meniscal tear is also a consideration. Please correlate with surgical procedure. 3. Small knee joint effusion with mild lateral patellar subluxation and minimal thinning of the patellar cartilage. Dictated by: Jeet Tsai MD 12/20/2019 11:00 Electronically signed by Jeet Tsai MD in [place] 12/20/2019 11:00
== END ==
PROVIDERS: PCP Family Medicine; Visit Provider Orthopaedic Surgery
DX: M17.11 Unilateral primary osteoarthritis, right knee (principal); M25.561 Pain in right knee
CPT/HCPCS: 73721

== ENCOUNTER → 2019-12-20 16:05 | Outpatient (CLI) | payer OTHER, SELFPAY ==
--- NOTE | 2019-12-20 16:15 | XR_ITS ---
PROCEDURE: XR CHEST 2V CLINICAL HISTORY: pre-op Heart disease COMPARISON: Chest from 01/02/2019 FINDINGS: The cardiomediastinal silhouette and pulmonary vascularity are within normal limits. Calcified granuloma is present in the right lower lobe. There is mild prominence of the pulmonary arteries which could be seen with pulmonary arterial hypertension. No acute bony abnormalities. IMPRESSION: No change with no acute finding. Mild prominence of the pulmonary arteries which may be seen with pulmonary arterial hypertension Dictated by: Jeet Tsai MD 12/20/2019 16:26 Electronically signed by Jeet Tsai MD in [place] 12/20/2019 16:26
[2019-12-20 16:35] LABS: Activated Partial Thrombo Time 23.6 seconds (23.6-34.0); INR 1.01 (0.9-1.1); Prothrombin Time 10.4 seconds (9.4-11.8)
[2019-12-20 17:15] LABS: Basophils # 0.1 K/mm3 (0-0.2); Eosinophils # 0.3 K/mm3 (0.0-0.4); Eosinophils % 3.4 % (0.1-12.0); Hematocrit 44.8 % (42.0-52.0); Hemoglobin 15.8 g/dL (14.1-18.0); Mean Corpuscular HGB Conc 35.2 g/dL (31.8-35.4); Mean Corpuscular Hemoglobin 32.3 pg (27.0-31.2); Mean Corpuscular Volume 91.8 fl (80-94); Mean Platelet Volume 7.7 fl (7.4-10.4); Monocytes # 0.7 K/mm3 (0.1-1.0); Neutrophils # 4.3 K/mm3 (1.8-7.8); Neutrophils % 51.5 % (37.0-80.0); Platelet Count 240 K/mm3 (142-424); Red Blood Count 4.88 M/mm3 (4.60-6.20); Red Cell Distribution Width 13.1 % (11.5-17.5); White Blood Count 8.4 K/mm3 (4.8-10.8)
[2019-12-20 17:59] LABS: Alanine Aminotransferase 28 U/L (12-78); Albumin Level 4.7 g/dl (3.5-5.0); Albumin/Globulin Ratio 1.7 (1.1-1.8); Alkaline Phosphatase 62 U/L (38-126); Anion Gap 11.4 mEq/L (5-15); Aspartate Amino Transferase 35 U/L (17-59); Bilirubin,Total 0.4 mg/dl (0.2-1.3); Blood Urea Nitrogen 29 mg/dl (9-20); Calcium 10.1 mg/dl (8.4-10.2); Carbon Dioxide 30 mmol/L (22.0-30.0); Chloride 105 mmol/L (98-107); Estimated Glomerular Filt Rate 69 ml/min (>60); GFR (African American) 83 ML/MIN (>60); Globulin 2.7 g/dL (1.3-3.2); Glucose 94 mg/dl (74-100); Potassium 4.4 mmoL/L (3.5-5.1); Sodium 142 mmol/L (136-145); Total Protein,Serum 7.4 g/dl (6.3-8.2)
== END ==
PROVIDERS: PCP Family Medicine; Visit Provider Orthopaedic Surgery
DX: Z01.818 Encounter for other preprocedural examination (principal); M17.11 Unilateral primary osteoarthritis, right knee; M25.561 Pain in right knee
CPT/HCPCS: 36415; 71046; 80053; 85025; 85610; 85730

== ENCOUNTER → 2019-12-29 11:37 | Outpatient (CLI) | payer OTHER, SELFPAY ==
[2019-12-29 12:11] LABS: Basophils # 0.1 K/mm3 (0-0.2); Basophils % 0.9 % (0.1-2.0); Eosinophils # 0.3 K/mm3 (0.0-0.4); Eosinophils % 4.3 % (0.1-12.0); Hematocrit 44.2 % (42.0-52.0); Hemoglobin 15.9 g/dL (14.1-18.0); Lymphocytes # 3.1 K/mm3 (0.7-4.5); Lymphocytes % 38.8 % (10-50); Mean Corpuscular HGB Conc 36.1 g/dL (31.8-35.4); Mean Corpuscular Hemoglobin 32.7 pg (27.0-31.2); Mean Corpuscular Volume 90.6 fl (80-94); Mean Platelet Volume 8.1 fl (7.4-10.4); Monocytes # 0.6 K/mm3 (0.1-1.0); Neutrophils # 3.8 K/mm3 (1.8-7.8); Platelet Count 236 K/mm3 (142-424); Red Blood Count 4.88 M/mm3 (4.60-6.20); Red Cell Distribution Width 13.1 % (11.5-17.5); White Blood Count 7.9 K/mm3 (4.8-10.8)
[2019-12-29 12:51] LABS: Chloride 101 mmol/L (98-107); Potassium 4.7 mmoL/L (3.5-5.1); Sodium 138 mmol/L (136-145)
[2019-12-29 12:54] LABS: Alanine Aminotransferase 28 U/L (12-78); Albumin Level 4.6 g/dl (3.5-5.0); Albumin/Globulin Ratio 1.8 (1.1-1.8); Alkaline Phosphatase 48 U/L (38-126); Anion Gap 12.7 mEq/L (5-15); Aspartate Amino Transferase 36 U/L (17-59); Bilirubin,Total 0.7 mg/dl (0.2-1.3); Blood Urea Nitrogen 23 mg/dl (9-20); Calcium 9.7 mg/dl (8.4-10.2); Carbon Dioxide 29 mmol/L (22.0-30.0); Estimated Glomerular Filt Rate 69 ml/min (>60); GFR (African American) 83 ML/MIN (>60); Globulin 2.6 g/dL (1.3-3.2); Glucose 99 mg/dl (74-100); Total Protein,Serum 7.2 g/dl (6.3-8.2)
[2019-12-29 13:52] LABS: Coronavirus 19 IgG Antibody Negative (Negative); Coronavirus 19 IgM Antibody Negative (Negative)
== END ==
PROVIDERS: Visit Provider Orthopaedic Surgery
DX: Z01.818 Encounter for other preprocedural examination (principal); M25.561 Pain in right knee
CPT/HCPCS: 36415; 80053; 85025; 86328

== ENCOUNTER 2019-12-30 11:12 | Day surgery (SDC) | payer OTHER, SELFPAY ==
[2019-12-28 13:35] VITALS: BMI 31.0
[2019-12-30] VITALS (14 sets, daily range): BP systolic 115–143; BP diastolic 55–92; PULSE 65–78; RESP 14–22; TEMP 36.4–43; O2SAT 94–99
--- NOTE | 2019-12-30 15:07 | P.PN_ITS ---
[facility] Anesthesia Checklist - Patient Identification Patient Identification: Arm Band - Structural Data Admitted From: Home Planned Operative Procedure/s: right knee arthroscopy, medial meniscal repair Consent for Planned Operative Procedure(s) Verified: Yes Verified Documents: Surgical Consent, History and Physical - NPO Status Verified Time NPO: 00:00 - Additional verifications Anesthesia Reactions: No Hx Blood Transfusions: No Blood Transfusion Reaction: No - Airway Assessment C-Spine Mobility Assessed: Yes (mp2) TMJ Mobility Assessed: Yes Dentition: Good Dentition - Neurological Assessment Level of Consciousness: Awake, Alert - Anesthesia Plan Anesthesia Risk discussed: Yes Anesthesia Plan: Verified ASA Class: III Anesthesia Type: General [facility] History I have reviewed the patient's past medical history: Yes Medical History: Reports:: Coronary Artery Disease, Gastroesophageal Reflux Disease(GERD), Hyperlipidemia, Hypertension, Myocardial Infarction Denies:: Cancer, Diabetes Mellitus Type 1, Diabetes Mellitus Type 2, MRSA, Seizures *Have you ever received a pneumonia vaccine?: No *Have you received a flu vaccine this season?: Yes Other Medical History: Denies: Blood Transfusion Reaction Anesthesia experience/problems:: nac Laterality Cases: Right: Arthroscopy Knee Other Surgeries: Yes: Cardiac Catheterization, Coronary Stent, Hernia Repair, Other Amputation: No Fractures: No - *Social History Last grade of school completed: Advanced degree Smoking Status: Former smoker Tobacco Type: cigarettes # Packs/Day (cigarettes): 1 #Yrs smoked (if former smoker): 5 Alcohol Intake: current Alcohol Intake Frequency:: holidays/special occasions only Substance Use Type: denies use *Occupational Status:: employed Housing: house Household Members: spouse *Travel in the last 8 weeks: None Family Hx:: Diabetes, Heart Attack
--- NOTE | 2019-12-30 15:08 | HMH.ANESI ---
[facility] Anesthesia Record Part I Intake, IV Amount: 1,100 Estimated blood loss (mL): 10 Urine output (mL): 0 Blood Pressure: 132/79 SaO2: 94 Pulse Rate: 78 Respiratory Rate: 16 Temperature: 98 F Patient is:: Drowsy, Stable Stable to PACU at:: 15:05
--- NOTE | 2019-12-30 15:37 | HMH.OPNOTE ---
Date of procedure: 12/30/19 Pre-op Diagnosis:: R knee DJD, medial meniscus tear Post-op Diagnosis:: R knee DJD, medial meniscus tear Procedure performed:: R knee arthroscopy, partial medial meniscectomy Surgeon:: Andie Vilchis MD Office Machine Servicer(s):: Mireya Bennett DEDICATED DRIVER:: Alexandru Blackman Anesthesia: GETA, local (10cc 0.5% marcaine at portal incisions ), other (10mg duramorph intra-articularly ) Estimated blood loss (mL): 10 Clinical Note:: 59yo M with a history of mild DJD s/p partial medial meniscectomy 2 years ago, with a chief complaint of acute pain in the R knee that started around 8-9 weeks ago. He was chasing a runaway tire that got away from him and started to go over a hill. As he chased this, he felt a sudden pop and severe pain in the right knee. He iced the knee, rested and took OTC NSAIDs, but the pain persisted. The pain was medial in location with associated popping but no locking or giving way. 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 His medical history significant for hypertension, hyperlipidemia, coronary artery disease, GERD. He has a history of ME and has cardiac stents; he takes both aspirin and Brilinta. He is a non-smoker, BMI 30. MRI revealed a complex tear of the posterior horn of the medial meniscus. I discussed treatment options with the patient, both operative and nonoperative, with the relative risks and benefits of each. He felt that the knee was fine before the current injury despite mild DJD and prior partial meniscectomy. After his recent injury, he has had persistent pain and popping that has not improved with ice and NSAIDs. I discussed performing another arthroscopy on this knee, and the possibility that, despite partial meniscectomy, he may have persistent pain due to underlying DJD. I explained that the popping and sharp, acute pain may improve after surgery, but any underlying chronic pain from his arthritis may persist. The patient is willing to take this chance and believes that if he could return to his preinjury level of function he would be satisfied. I discussed the risks of surgery with the patient, including bleeding, infection, neurovascular damage, fracture or postoperative osteonecrosis, persistent pain and stiffness despite surgery, need for physical therapy postoperatively, and possibility of need for further surgery in the future. The patient vocalized understanding of the above and has agreed to perform proceed with surgery. He was cleared by both his PCP and batch records clerk, and asked to stop brillinta and aspirin 5 days prior to surgery. All pre-operative laboratory testing was within normal limits. Operative findings:: patella: diffuse grade 3 changes trochlea: grade 2-3 medial meniscus: complex tear of posterior horn medial femoral condyle: grade 3 changes across weightbearing surface lateral meniscus: occasional grade 2 changes, largely intact and in good condition lateral meniscus: intact, some fraying along inner border medial/lateral tibial plateaus: diffuse grade 1-2 changes notch: ACL/PCL intact *no loose bodies or plica Operative note:: The patient was identified in preoperative holding and the R knee signed by myself. Informed consent was reviewed and confirmed with the patient, all questions answered. Pre-operative laboratory testing was reviewed and found to be within acceptable limits. The patient was then taken to the OR and placed supine on the operative table. 2 g Ancef were infused and general anesthesia induced. The R leg was then placed in an arthroscopic leg kulkarni with a nonsterile tourniquet on the upper thigh. The leg was then prepped and draped in the usual sterile fashion for knee arthroscopy. Timeout was performed, identifying the correct patient, correct procedure, and correct site. The procedure was begun by first exsanguinating the R leg and inflating the tourniquet to 250 mmHg. Using an 11 blade, standard anterolateral and ant
--- NOTE | 2019-12-31 07:13 | P.PN_ITS ---
[facility] Anesthesia Record Part II Discharge Time: 15:35 Destination: Surgical Day Care (OP Surgery) PACU nurse assessment reviewed?: Yes Patient Condition:: Good Anesthesia Complications:: None Swallowing reflex intact?: Yes Cyanosis?: No Blood Pressure: 126/55 Pulse Rate: 65 Temperature: 98.0 F Mental Status: Alert & Oriented Pain level:: 4 Nausea and/or vomitting:: None Intake, IV Amount: 0
[2019-12-31 07:15] VITALS: BP 126/55; PULSE 65; TEMP 36.7
== END 2019-12-30 16:29 | disposition home or self-care (01) ==
PROVIDERS: PCP Family Medicine; Visit Provider Orthopaedic Surgery
PROC: (CPT 29870; principal; 2019-12-30 13:00)
DX: S83.241A Other tear of medial meniscus, current injury, right knee, initial encounter (principal); M17.11 Unilateral primary osteoarthritis, right knee; Y93.01 Activity, walking, marching and hiking; I25.10 Atherosclerotic heart disease of native coronary artery without angina pectoris; I10 Essential (primary) hypertension; E78.5 Hyperlipidemia, unspecified; Z87.891 Personal history of nicotine dependence; Z79.82 Long term (current) use of aspirin; Z79.01 Long term (current) use of anticoagulants; Z95.5 Presence of coronary angioplasty implant and graft; I25.2 Old myocardial infarction
CPT/HCPCS: 29882; 96374; J2405

== ENCOUNTER → 2020-03-15 08:45 | Outpatient (CLI) | payer OTHER, SELFPAY ==
--- NOTE | 2020-03-15 08:49 | CA_ITS ---
APPROVED REPORT Exam: Exercise Treadmill Technologist: Cheyanne Santillan Ht: 6 ft 4 in Wt: 248 lbs BSA: 2.43 m2 HR: 81 bpm BP: 137/82 mmHg Indications: Abnormal EKG Medical History Medications: Isosorbide,,,,, Aspirin,,,,, Metoprolol,,,,, Temazepam,,,,, RoSUVASTATIN,,,,, Co Q10,,,,, Pantroprazole,,,,, Ticagrelon,,,,, Stress Test Details Test: Ty HR Resting HR: 66 bpm Max Heart Rate (APMHR): 161 bpm Max HR Achieved: 144 bpm Target HR (85% APMHR): 136 bpm % of APMHR: 89 Recovery HR: 78 bpm BP Resting BP: 137.0/82.0 mmHg Max BP: 204.0/86.0 mmHg Recovery BP: 132.0/67.0 mmHg ECG Clinical Exercise duration: 09:00 min Highest Stage Achieved: Exercise capacity: 10.1 METs Stress ECG Conclusion Resting ECG: Normal sinus rhythm, cannot rule out old septal AK, ST T abnormality in lead III. Symptoms: No chest pain Arrhythmias/Ectopy: Rare PVC ST-T Changes: Exaggeration of baseline ST-T abnormalities in lead III. [address] depression in lead aVF and 0.75 mm in lead III. Conclusion: Abnormal exercise treadmill stress test Test Summary REST . . . . . . . Standing REST 04:07 0.0 0.0 66 . 137/ 82 . . Stage 1 01:00 10.0 1.7 84 . . . . Stage 1 02:00 10.0 1.7 93 . . . . Stage 1 03:00 10.0 1.7 91 . 164/ 86 . . Stage 2 01:00 12.0 2.5 101 . . . . Stage 2 02:00 12.0 2.5 115 . . . . Stage 2 03:00 12.0 2.5 120 . 188/ 84 . . Stage 3 01:00 14.0 3.4 134 . . . . Stage 3 02:00 14.0 3.4 144 . . . . Stage 3 03:00 14.0 3.4 144 . . . Stop exercise at 09:00 RECOVERY 01:00 0.0 0.0 116 . 204/ 86 . . RECOVERY 02:00 0.0 0.0 90 . 204/ 86 . . RECOVERY 03:00 0.0 0.0 82 . 157/ 82 . . RECOVERY 04:00 0.0 0.0 79 . 157/ 82 . . RECOVERY 05:00 0.0 0.0 77 . 157/ 82 . . RECOVERY 05:26 0.0 0.0 77 . 132/ 67 . . Electronically signed by : Kenneth Daniel, 03/17/2020 14:45:50
== END ==
PROVIDERS: PCP Family Medicine; Visit Provider Urology
DX: R94.31 Abnormal electrocardiogram [ECG] [EKG] (principal); I25.10 Atherosclerotic heart disease of native coronary artery without angina pectoris
CPT/HCPCS: 93017

== ENCOUNTER 2020-07-03 12:21 | Day surgery (SDC) | payer OTHER, SELFPAY ==
[2020-07-03] VITALS (18 sets, daily range): BP systolic 116–149; BP diastolic 62–96; PULSE 56–76; RESP 16–20; TEMP 36.6–37.2; O2SAT 92–99; BMI 32.5
[2020-07-03 11:56] LABS: Basophils # 0.1 K/mm3 (0-0.2); Basophils % 0.8 % (0.1-2.0); Eosinophils # 0.3 K/mm3 (0.0-0.4); Eosinophils % 3.9 % (0.1-12.0); Hematocrit 49.8 % (42.0-52.0); Hemoglobin 16.9 g/dL (14.1-18.0); Lymphocytes # 2.4 K/mm3 (0.7-4.5); Lymphocytes % 31.7 % (10-50); Mean Corpuscular Hemoglobin 31.2 pg (27.0-31.2); Mean Corpuscular Volume 91.8 fl (80-94); Mean Platelet Volume 7.9 fl (7.4-10.4); Monocytes # 0.6 K/mm3 (0.1-1.0); Monocytes % 7.4 % (1.7-9.3); Neutrophils # 4.3 K/mm3 (1.8-7.8); Neutrophils % 56.1 % (37.0-80.0); Platelet Count 260 K/mm3 (142-424); Red Blood Count 5.43 M/mm3 (4.60-6.20); Red Cell Distribution Width 13.6 % (11.5-17.5); White Blood Count 7.7 K/mm3 (4.8-10.8)
[2020-07-03 12:08] LABS: Chloride 105 mmol/L (98-107); Potassium 4.1 mmoL/L (3.5-5.1); Sodium 137 mmol/L (136-145)
[2020-07-03 12:10] LABS: Blood Urea Nitrogen 18 mg/dl (9-20)
[2020-07-03 12:11] LABS: Alanine Aminotransferase 32 U/L (12-78); Albumin Level 4.7 g/dl (3.5-5.0); Alkaline Phosphatase 58 U/L (38-126); Anion Gap 12.1 mEq/L (5-15); Aspartate Amino Transferase 36 U/L (17-59); Bilirubin,Direct 0.2 mg/dl (0.0-0.4); Bilirubin,Indirect 0.4 mg/dL (0.0-0.9); Bilirubin,Total 0.6 mg/dl (0.2-1.3); Bilirubin,Unconjugated 0.4 mg/dL (0.0-1.1); Calcium 10.1 mg/dl (8.4-10.2); Carbon Dioxide 24 mmol/L (22.0-30.0); Chol/HDL Ratio 3.4 (1-3.5); Cholesterol 162 mg/dl (140-200); Estimated Glomerular Filt Rate 68 ml/min (>60); GFR (African American) 83 ML/MIN (>60); Glucose 120 mg/dl (74-100); HDL Cholesterol 47 mg/dl (40-60); Total Protein,Serum 7.9 g/dl (6.3-8.2); Triglycerides 298 mg/dl (30-150); VLDL Cholesterol 60 mg/dL (0-40)
[2020-07-03 12:22] LABS: Direct LDL Cholesterol 60.53 mg/dL (100-129)
[2020-07-03 12:25] LABS: Coronavirus 19 IgG Antibody Negative (Negative); Coronavirus 19 IgM Antibody Negative (Negative)
--- NOTE | 2020-07-03 12:44 | XR_ITS ---
PROCEDURE: XR CHEST PORTABLE CLINICAL HISTORY: chest pain COMPARISON: CR Chest from 01/02/2019 CR XR CHEST 2V from 12/20/2019 FINDINGS: The cardiomediastinal silhouette and pulmonary vascularity are within normal limits. The lungs are clear without infiltrates, suspicious nodules, or pleural effusions. No acute bony abnormalities. IMPRESSION: No acute findings. Dictated by: Jeet Tsai MD 07/03/2020 13:05 Jeet Tsai MD in [place] 07/03/2020 13:05
--- NOTE | 2020-07-03 12:45 | HMH.EDCP ---
ED Disposition Clinical Impression: Chest pain Qualifiers: Chest pain type: unspecified Qualified Code(s): R07.9 - Chest pain, unspecified Disposition: Still a Patient Condition on Discharge: Good - Critical Care Critical Care Time: No Attestation: On 07/03/20, the high probability of a clinically significant, sudden or life threatening deterioration of the following system(s) required my full and direct attention, intervention and personal management. The time I documented below is in addition to time spent performing reported procedures but includes the following listed in this critical care notation. Medical Decision Making - Medical Records Medical records reviewed: Yes: I reviewed the patient's medical records. - Juan Inquiry Pt receiving controlled substance: No Vital Signs: 07/03/20 12:21 07/03/20 12:51 07/03/20 13:49 Temperature 98.9 F 98.9 F Temperature Source Oral Oral Pulse Rate 69 Pulse Rate [Left Radial] 66 69 Respiratory Rate 20 18 18 Blood Pressure 133/62 Blood Pressure [Right Arm] 140/90 149/96 H Blood Pressure Mean [Right Arm] 106 113 Blood Pressure Source Automatic Cuff Blood Pressure Source [Right Arm] Automatic Cuff Automatic Cuff Blood Pressure Position Sitting Blood Pressure Position [Right Arm] Sitting Supine 02 Sat by Pulse Oximetry 98 95 Oxygen Delivery Method Room Air Room Air Room Air - Lab Data Lab results reviewed: Yes: I reviewed the patient's lab results. Lab Results 07/03/20 11:35: WBC 7.7, RBC 5.43, Hgb 16.9, Hct 49.8, MCV 91.8, MCH 31.2, MCHC 34.0, RDW 13.6, Plt Count 260, MPV 7.9, Neut % (Auto) 56.1, Lymph % (Auto) 31.7, Bollinger % (Auto) 7.4, Eos % (Auto) 3.9, Baso % (Auto) 0.8, Neut # (Auto) 4.3, Lymph # (Auto) 2.4, Bollinger # (Auto) 0.6, Eos # (Auto) 0.3, Baso # (Auto) 0.1 07/03/20 11:35: Sodium 137, Potassium 4.1, Chloride 105, Carbon Dioxide 24, Anion Gap 12.1, BUN 18, Creatinine 1.10, Estimated GFR 68, Est GFR ( Amer) 83, Glucose 120 H, Calcium 10.1, Total Bilirubin 0.6, Direct Bilirubin 0.2, Conjugated Bilirubin 0.0, Indirect Bilirubin 0.4, Unconjugated Bilirubin 0.4, AST 36, ALT 32, Alkaline Phosphatase 58, Total Protein 7.9, Albumin 4.7, Triglycerides 298 H, Cholesterol 162, LDL Cholesterol Direct 60.53 L, VLDL Cholesterol 60 H, HDL Cholesterol 47, Cholesterol/HDL Ratio 3.4 07/03/20 11:35: SARS-CoV-2 IgG Ab (Rapid) Negative, SARS-CoV-2 IgM Ab (Rapid) Negative 07/03/20 12:25: Sodium 138, Potassium 4.3, Chloride 103, Carbon Dioxide 26, Anion Gap 13.3, BUN 18, Creatinine 1.10, Estimated Creat Clear 119, Estimated GFR 68, Est GFR ( Amer) 83, Glucose 100, Calcium 10.1, Total Bilirubin 0.5, AST 34, ALT 31, Alkaline Phosphatase 58, Troponin I < 0.01, Total Protein 8.0, Albumin 4.8, Globulin 3.2, Albumin/Globulin Ratio 1.5 Result diagrams: 07/03/20 11:35 07/03/20 12:25 Orders (Tests/Meds): ED MEDICATIONS Generic Name Dose Route Start Last Admin Trade Name Freq PRN Reason Stop Dose Admin Fentanyl Citrate 25 mcg 07/03/20 12:25 Fentanyl 100mcg/2ml Vial IV 07/04/20 12:26 Q3MINP PRN Moderate to Severe Pain Fentanyl Citrate 50 mcg 07/03/20 12:25 Fentanyl 100mcg/2ml Vial IV 07/04/20 12:26 Q3MINP PRN Moderate to Severe Pain Flumazenil 0.2 mg 07/03/20 12:25 Flumazenil 0.1mg/Ml 5ml Vial IV 07/03/20 23:00 NEEDED PRN Sedation Heparin Sodium (Porcine) 10,000 unit 07/03/20 12:25 07/03/20 13:50 Heparin 1,000 Units/Ml 10ml Vial (Welding Technician) IV 07/03/20 16:25 5,000 unit NEEDED PRN Administration Emergency Box Mud Engineer Sodium Chloride 1,000 mls @ 25 mls/hr 07/03/20 12:30 07/03/20 13:49 Sod Chlor 0.9% 1000ml Bag IV 07/04/20 12:25 25 mls/hr .Q25H VANDANA Administration Midazolam HCl 1 mg 07/03/20 12:25 Midazolam 2mg/2ml Vial IV 07/04/20 12:25 Q3MINP PRN Sedation Midazolam HCl 1 mg 07/03/20 12:25 Midazolam Hcl 1mg/1ml 5ml Vial IV 07/04/20 12:25 Q3MINP PRN
[2020-07-03 13:13] LABS: Alanine Aminotransferase 31 U/L (12-78); Albumin Level 4.8 g/dl (3.5-5.0); Albumin/Globulin Ratio 1.5 (1.1-1.8); Alkaline Phosphatase 58 U/L (38-126); Anion Gap 13.3 mEq/L (5-15); Aspartate Amino Transferase 34 U/L (17-59); Bilirubin,Total 0.5 mg/dl (0.2-1.3); Blood Urea Nitrogen 18 mg/dl (9-20); Calcium 10.1 mg/dl (8.4-10.2); Carbon Dioxide 26 mmol/L (22.0-30.0); Chloride 103 mmol/L (98-107); Creatinine Clearance Estimated 119 mL/min (50-200); Estimated Glomerular Filt Rate 68 ml/min (>60); GFR (African American) 83 ML/MIN (>60); Globulin 3.2 g/dL (1.3-3.2); Glucose 100 mg/dl (74-100); Potassium 4.3 mmoL/L (3.5-5.1); Sodium 138 mmol/L (136-145)
--- NOTE | 2020-07-03 13:29 | IR_ITS ---
APPROVED REPORT Patient Location: Outpatient Group Activities Aide: ANGELITO Castellanos RT (R) PROCEDURES Left heart catheterization Left ventriculogram Selective coronary angiogram INDICATION Known coronary artery disease, Unstable angina Informed consent was obtained prior to the procedure. COMPLICATIONS none Estimated Blood Loss: less than 10 mls TECHNIQUE One percent lidocaine used to anesthetize the right anterior aspect of the wrist. The right radial artery was accessed via the Seldinger technique. A 6 Faroese sheath was placed in the right radial artery. 2.5 mg of verapamil, 800 mcg of nitroglycerin, 1mg Lidocaine and 5000 U Heparin were given through the arterial sheath. The trap catheter was also used to perform left heart catheterization, left ventriculogram and selective coronary angiogram. At the end of the procedure the sheath was removed good hemostasis was achieved using Traclet band, patient was transferred to the postop holding area in stable condition. ANGIOGRAPHIC RESULTS The left main artery Normal The left anterior descending artery Has a proximal 10% followed by an eccentric 30% stenosis followed by additional 20% proximal stenosis. The stent in the midportion is widely patent with excellent proximal distal transitioning. The remaining vessel has mild 10% luminal irregularities The circumflex artery Is a nondominant vessel with mild mid vessel and distal 10 to 20% nonflow limiting stenoses The right coronary artery Is a massively large dominant vessel with mild diffuse vascular ectasia accompanied by slow flow throughout. Distally the vessel has 10% stenoses The MARIE ventriculogram reveals Normal 65% The left ventricular end-diastolic pressure 20 mmHg IMPRESSION Widely patent mid LAD stent Mild vascular ectasia in a massively large dominant right coronary artery accompanied by slow flow consistent with endothelial dysfunction Normal ejection fraction Mildly elevated LVEDP PLAN 1. Medical management Electronically signed by : Álvaro Moralez, 07/03/2020 16:11:37
[2020-07-03 13:33] LABS: Troponin I < 0.01 ng/ml (0.00-0.034)
[2020-07-03 15:17] LABS: Lipase 110 U/L (23-300)
== END 2020-07-03 22:50 | disposition home or self-care (01) ==
LOC: ER 12:26 → CATHLAB 12:45
PROVIDERS: Urology; Emergency Provider Emergency Medicine; PCP Internal Medicine; Visit Provider Internal Medicine
DX: I25.110 Atherosclerotic heart disease of native coronary artery with unstable angina pectoris (principal); K21.9 Gastro-esophageal reflux disease without esophagitis; R06.00 Dyspnea, unspecified; R94.31 Abnormal electrocardiogram [ECG] [EKG]; Z95.5 Presence of coronary angioplasty implant and graft; E78.2 Mixed hyperlipidemia; E78.5 Hyperlipidemia, unspecified; I10 Essential (primary) hypertension; R94.39 Abnormal result of other cardiovascular function study; Z79.899 Other long term (current) drug therapy; Z79.82 Long term (current) use of aspirin
CPT/HCPCS: 36415; 71045; 80048; 80053; 80061; 80076; 83690; 84484; 85025; 86328; 93005; 93458; 99152; 99284; C1760; C1769; J1644; Q9967

== ENCOUNTER → 2020-08-09 11:15 | Outpatient (CLI) | payer OTHER, SELFPAY ==
[2020-08-09 13:22] LABS: Coronavirus 19 IgG Antibody Negative (Negative); Coronavirus 19 IgM Antibody Negative (Negative)
== END ==
PROVIDERS: Visit Provider Internal Medicine Gastroenterology
DX: Z01.812 Encounter for preprocedural laboratory examination (principal)
CPT/HCPCS: 36415; 86328

== ENCOUNTER 2020-08-11 06:21 | Day surgery (SDC) | payer OTHER, SELFPAY ==
[2020-08-07 10:59] VITALS: BMI 31.8
[2020-08-11 07:04] VITALS: BP 125/84; PULSE 65; RESP 18; TEMP 36.2; O2SAT 97
--- NOTE | 2020-08-11 07:27 | HMH.ANESCL ---
[facility] Anesthesia Checklist - Patient Identification Patient Identification: Arm Band - Structural Data Admitted From: Home Planned Operative Procedure/s: egd Consent for Planned Operative Procedure(s) Verified: Yes Verified Documents: Surgical Consent, History and Physical - NPO Status Verified Time NPO: 00:00 - Additional verifications Anesthesia Reactions: No Hx Blood Transfusions: No Blood Transfusion Reaction: No - Airway Assessment C-Spine Mobility Assessed: Yes (mp2) TMJ Mobility Assessed: Yes Dentition: Good Dentition - Neurological Assessment Level of Consciousness: Awake, Alert - Anesthesia Plan Anesthesia Risk discussed: Yes Anesthesia Plan: Verified ASA Class: III Anesthesia Type: MAC [facility] History I have reviewed the patient's past medical history: Yes Medical History: Reports:: Coronary Artery Disease, Gastroesophageal Reflux Disease(GERD), Hyperlipidemia, Hypertension, Myocardial Infarction Denies:: Cancer, Diabetes Mellitus Type 1, Diabetes Mellitus Type 2, Internal Pacemaker, MRSA, Seizures *Have you ever received a pneumonia vaccine?: No *Have you received a flu vaccine this season?: No Other Medical History: Denies: Blood Transfusion Reaction Anesthesia experience/problems:: nac Laterality Cases: Right: Arthroscopy Knee, Bilateral: Tonsillectomy Other Surgeries: Yes: Cardiac Catheterization, Coronary Stent, Hernia Repair, Other. No: Pacemaker Amputation: No Fractures: No - *Social History Smoking Status: Former smoker Tobacco Type: cigarettes # Packs/Day (cigarettes): 1 #Yrs smoked (if former smoker): 5 Alcohol Intake: current Alcohol Intake Frequency:: holidays/special occasions only Substance Use Type: denies use *Occupational Status:: employed Housing: house Household Members: spouse *Travel in the last 8 weeks: None Family Hx:: Diabetes, Heart Attack
[2020-08-11 07:47] VITALS: O2SAT 97
--- NOTE | 2020-08-11 07:48 | P.PCN_ITS ---
[facility] Procedure Note Procedure Note:: Upper Endoscopy Procedure Report: Esophagogastroduodenoscopy with cold biopsies Endoscopost: Emir Caro II, MD Referring Physician: Collin Marlow MD Date of Procedure: August 11, 2020 Equipment: Olympus GIF 190 standard upper endoscope Sedation: MAC sedation Indications: Mr. Hanson is a 60-year-old gentleman who has a history of CASHD and coronary stents. Recently he has developed chest pain and shortness of breath. He did come to [facility] and had a cardiac evaluation including cardiac catheterization that showed no coronary blockages presently. It was felt that his chest pain may be esophageal chest pain in origin. The patient does get moderate heartburn and reflux. He has had moderate bloating and occasional belching. He has some early satiety. He reports no nausea or epigastric pain. He has no dysphagia or globus sensation. He reports regular bowel function. He does state that his chest pain is left precordial. He does get some difficulty getting a deep breath with some dyspnea. This does not occur with exertion necessarily. It is also not always postprandial. This is his first upper endoscopy for diagnostic purposes. Procedure: Prior to the procedure, a history and physical exam was performed, and patient's medications and allergies were reviewed. The risks, benefits and alternatives of the sedation and procedure were discussed with the patient. All questions were answered and informed consent was obtained. The patient was brought to the procedure room. Patient identification and proposed procedure were verified by the physician and the nurse. The patient was placed in a left lateral decubitus position and the scope was passed under direct vision. Throughout the procedure, the patient's blood pressure, pulse, and oxygen saturations were monitored continuously. The upper GI endoscopy was accomplished without difficulty. The patient tolerated the procedure well. Findings: The scope was passed directly into the upper esophagus and advanced to the third portion of the duodenum. The post bulbar duodenum and duodenal bulb were normal with normal mucosa and conniventes. The scope was withdrawn through a normal duodenal bulb and pylorus into the stomach. There was bile reflux with linear reactive gastropathy of the antrum. The remainder of the body and fundus of the stomach were grossly normal. Upon retroflexion there was a small 1 to 2 cm hiatal hernia. 2 biopsies were taken in the antrum and along the lesser cur vature for histology to rule out gastritis and/or H pylori. There were a couple of fundic gland polyps removed via cold biopsy. The scope was then withdrawn into the esophagus. There was a serrated Z-line and biopsies were taken at the GE junction to rule out GERD. There was no evidence of reflux esophagitis, Schatzki's ring or Corona's. There were strong tertiary contractions and evidence of moderate esophageal dysmotility. The remainder of the esophageal mucosa was normal. Impression: 1. Nonerosive GERD with moderate esophageal dysmotility and very small sliding hiatal hernia (1 to 2 cm) 2. Mild linear reactive gastropathy 3. Gastric fundic gland polyps Plan: I am not convinced that the patient's chest pain is esophageal in origin. I would consider a CT imaging study of the thorax to exclude other etiologies of this atypical chest pain and dyspnea. I will discuss the findings with the patient and family. I will follow-up the biopsies.
[2020-08-11 07:59] VITALS: BP 142/87; PULSE 68; RESP 20; TEMP 36.1; O2SAT 93
[2020-08-11 08:15] VITALS: BP 106/66; PULSE 70; RESP 16; O2SAT 96
[2020-08-11 08:30] VITALS: BP 125/74; PULSE 62; RESP 16; O2SAT 97
== END 2020-08-11 08:30 | disposition home or self-care (01) ==
PROVIDERS: PCP Family Medicine; Visit Provider Internal Medicine Gastroenterology
PROC: 0DJ08ZZ Inspection of Upper Intestinal Tract, Via Natural or Artificial Opening Endoscopic (ICD-10-PCS; CPT 43235; principal; 2020-08-11 07:30)
DX: K21.9 Gastro-esophageal reflux disease without esophagitis (principal); K22.4 Dyskinesia of esophagus; K31.9 Disease of stomach and duodenum, unspecified; K44.9 Diaphragmatic hernia without obstruction or gangrene; K31.7 Polyp of stomach and duodenum; I25.10 Atherosclerotic heart disease of native coronary artery without angina pectoris; Z95.818 Presence of other cardiac implants and grafts; E78.5 Hyperlipidemia, unspecified; I10 Essential (primary) hypertension; I25.2 Old myocardial infarction; Z87.39 Personal history of other diseases of the musculoskeletal system and connective tissue; Z87.891 Personal history of nicotine dependence
CPT/HCPCS: 43239

== ENCOUNTER → 2020-10-05 12:25 | Outpatient (CLI) | payer OTHER, SELFPAY ==
[2020-10-05 13:37] LABS: Coronavirus 19 IgG Antibody Negative (Negative); Coronavirus 19 IgM Antibody Negative (Negative)
== END ==
PROVIDERS: Visit Provider Internal Medicine Gastroenterology
DX: Z01.812 Encounter for preprocedural laboratory examination (principal); Z11.52 Encounter for screening for COVID-19; Z12.11 Encounter for screening for malignant neoplasm of colon
CPT/HCPCS: 36415; 86328

== ENCOUNTER 2020-10-06 07:44 | Day surgery (SDC) | payer OTHER, SELFPAY ==
[2020-10-03 14:24] VITALS: BMI 31.8
[2020-10-06] VITALS (7 sets, daily range): BP systolic 118–156; BP diastolic 61–101; PULSE 57–76; RESP 16–18; TEMP 36.6–37; O2SAT 95–98
--- NOTE | 2020-10-06 08:31 | HMH.PROC ---
[facility] Procedure Note Procedure Note:: Colonoscopy Procedure Report: Colonoscopy with cold snare polypectomy Endoscopist: Emir Caro II, MD Referring physician: Collin Marlow MD Date of Procedure: October 06, 2020 Equipment: Olympus 190 variable stiffness pediatric colonoscope Sedation: MAC sedation Indication: Mr. Hanson is a 60-year-old gentleman who is here for screening colonoscopy. The patient was having esophageal chest pain, fullness and belching. The patient has improved with dietary measures and taking a fiber bowel regimen (combined MiraLAX plus Konsyl mixed together p.o. every morning). He is only doing this every other or every third day but overall he is better. He reports no rectal bleeding, weight loss, change in his bowel habits or family history of colon cancer. His abdominal discomfort is improved overall. He does state that his mother had colon polyps. His last colonoscopy was 15 or 16 years ago. Procedure: Prior to the procedure, a history and physical exam was performed, and patient's medications and allergies were reviewed. The risks, benefits and alternatives of the sedation and procedure were discussed with the patient. All questions were answered and informed consent was obtained. The patient was brought to the procedure room. Patient identification and proposed procedure were verified by the physician and the nurse. The patient was placed in a left lateral decubitus position and the scope was passed under direct vision. Throughout the procedure, the patient's blood pressure, pulse, and oxygen saturations were monitored continuously. The colonoscopy was accomplished without difficulty. The patient tolerated the procedure well. Findings: On digital rectal examination there was normal rectal tone. There were no external hemorrhoids. The prostate was 2+, mildly firm but symmetric without nodules. The colonoscope was introduced through the anal canal to the rectum and advanced to the cecum. The ileocecal valve and appendiceal orifice were identified. The scope was advanced a short distance into the ileum which appeared grossly normal. The scope was then withdrawn into the colon. There was a single 5 to 6 mm polyp in the ascending colon removed via cold snare polypectomy. The remaining cecum, ascending, transverse, descending, sigmoid and rectum were grossly normal. There were no other mucosal abnormalities identified. Upon retroflexion within the rectum there were grade 1-2 internal hemorrhoids.The preparation was good throughout with Bland Preparation Score of 8 out of 9. The cecal time was 12 minutes. Impression: 1. Diminutive ascending colon polyp 2. Grade 1-2 internal hemorrhoids Plan: I will follow up the polyp pathology and recommend repeat colonoscopy again in 7-10 years based upon the polyp histology. I would encourage continuation of the fiber bowel regimen (combined MiraLAX plus Konsyl) on a long-term daily maintenance basis.
--- NOTE | 2020-10-06 08:31 | HMH.ANESCL ---
[facility] Anesthesia Checklist - Structural Data Admitted From: Home Planned Operative Procedure/s: colonoscopy Consent for Planned Operative Procedure(s) Verified: Yes - Additional verifications Anesthesia Reactions: No Hx Blood Transfusions: No Blood Transfusion Reaction: No - Airway Assessment C-Spine Mobility Assessed: Yes TMJ Mobility Assessed: Yes Dentition: Good Dentition - Neurological Assessment Level of Consciousness: Awake, Alert, Appropriate - Anesthesia Plan Anesthesia Risk discussed: Yes Anesthesia Plan: Verified ASA Class: III Anesthesia Type: MAC [facility] History I have reviewed the patient's past medical history: Yes Medical History: Reports:: Coronary Artery Disease, Gastroesophageal Reflux Disease(GERD), Hyperlipidemia, Hypertension, Myocardial Infarction Denies:: Cancer, Diabetes Mellitus Type 1, Diabetes Mellitus Type 2, Internal Pacemaker, MRSA, Seizures *Have you ever received a pneumonia vaccine?: No *Have you received a flu vaccine this season?: Yes Other Medical History: Denies: Blood Transfusion Reaction Anesthesia experience/problems:: none Laterality Cases: Right: Arthroscopy Knee, Bilateral: Tonsillectomy Other Surgeries: Yes: Cardiac Catheterization, Coronary Stent, Hernia Repair, Other. No: Pacemaker Amputation: No Fractures: No - *Social History Last grade of school completed: Some college Smoking Status: Never smoker Tobacco Type: cigarettes # Packs/Day (cigarettes): 1 #Yrs smoked (if former smoker): 5 Alcohol Intake: never Alcohol Intake Frequency:: holidays/special occasions only Substance Use Type: denies use *Occupational Status:: employed Housing: house Household Members: spouse *Travel in the last 8 weeks: None Family Hx:: Diabetes, Heart Attack
== END 2020-10-06 09:45 | disposition home or self-care (01) ==
LOC: OUTP 07:45
PROVIDERS: PCP Family Medicine; Visit Provider Internal Medicine Gastroenterology
PROC: 0DJD8ZZ Inspection of Lower Intestinal Tract, Via Natural or Artificial Opening Endoscopic (ICD-10-PCS; CPT 45378; principal; 2020-10-06 08:30)
DX: Z12.11 Encounter for screening for malignant neoplasm of colon (principal); K63.5 Polyp of colon; K64.0 First degree hemorrhoids; I25.10 Atherosclerotic heart disease of native coronary artery without angina pectoris; K21.9 Gastro-esophageal reflux disease without esophagitis; E78.5 Hyperlipidemia, unspecified; I10 Essential (primary) hypertension; I25.2 Old myocardial infarction; Z83.3 Family history of diabetes mellitus; Z82.3 Family history of stroke; Z79.82 Long term (current) use of aspirin; Z79.899 Other long term (current) drug therapy
CPT/HCPCS: 45385

== ENCOUNTER → 2022-10-07 11:22 | Outpatient (CLI) | payer OTHER, SELFPAY ==
--- NOTE | 2022-10-07 11:30 | XR_ITS ---
FINAL REPORT CLINICAL HISTORY: SACROILIAC JOINT PAIN, no known injury, pain worse on right FINDINGS: 4 views were obtained. There is no acute fracture. There is no malalignment. Mild diffuse degenerative disc disease. Mild facet arthropathy. IMPRESSION: Mild diffuse degenerative disc disease. Reviewed, Interpreted and Dictated by Tushar Angelo MD Transcribed by Dustin Ambriz Authenticated and [facility]
== END ==
PROVIDERS: PCP Family Medicine; Visit Provider Family Medicine
DX: M53.3 Sacrococcygeal disorders, not elsewhere classified (principal)
CPT/HCPCS: 72110

== ENCOUNTER 2022-12-18 08:30 | Outpatient (RCR) | payer OTHER, SELFPAY ==
--- NOTE | 2022-11-08 14:50 | HMH.PTOPEV ---
PT Outpatient Evaluation Rehab PT Outpatient Evaluation Start: 11/08/22 13:50 Freq: Status: Active Protocol: Document 11/08/22 13:54 TERRY (Rec: 11/08/22 14:50 ROXANNDARRIUS [id number]) E-signed By Guillermina Lovell, PT Outpatient Therapy Subjective History Subjective History Pt presents to the PT clinic with reports of low back pain that began last fall. Pt cannot recall a specific incident that occured when he noticed the pain. Pt reports that he often notices shooting pain as well as n/t that travels down the back of his R leg. Pt reports that while he is walking, but often notices pain in his back 4-5 hours after he walks ~1 mile. Pt reports he has tried a chiropractor for the pain, a heating pad and OTC medication to assist with the pain. Pt currently is working as a kaminski. Pt reports he likes to [place] and used to be able to walk ~15 miles without difficulty. Pt reports he would like to get back to hunting. PMH: [place], 3 stents placed Chief Complaint Pain,Spasms,Stiff,Paresthesia Symptom Type Ache,Throb,Stabbing,Burning, Numbness,Tingling,Shooting Symptoms Relieved By Rest/Positioning,Heat,OTC Meds ,Prescription Meds Symptoms Aggravated By Bending/Stooping,Physical Activity,Twisting,Walking, Lifting Prior Functional Limitations None Current Functional Limitations Lifting,Sleeping,Sitting, Squatting,Recreation Activity, Walking,Balance,Bending/ Stooping Symptom Description Activity Dependent Level of pain today (0-10) 3 Pain scale - at its best (0-10) 0 Pain scale - at its worst (0-10) 9 Lumbopelvic Eval Posture Lumbar Spine Posture Standing Position Increased Lordosis Assistive device Assistive Devices None / NA Palapation tenderness right lumbar spinal tenderness Yes paraspinal tenderness Yes buttock tenderness Yes Lumbar/Sacral Palpation Findings Tenderness,Muscle Guardin
--- NOTE | 2022-12-06 12:13 | HMH.RHREAS ---
Rehab Reassessment Rehab OP Re-assessment Start: 11/08/22 13:50 Freq: Status: Active Protocol: Document 12/06/22 11:56 TERRY (Rec: 12/06/22 12:13 ROXANNDARRIUS [id number]) E-signed By Guillermina Lovell PT Rehab Re-assessment Subjective Subjective Pt presented to the PT clinic for re-assessment for LBP and RLE n/t. Pt reports that he performed the initial HEP for 3-4 days following the evaluation and felt really good. Pt reports that after the 4 days, he started to feel a knot in his R hip that caused him a lot of pain. Pt reports he stopped doing his HEP once the knot appeared and has not performed them since. Objective Objective Notes L-spine AROM 50* flx 15* ext 20* L lateral flexion 10* R lateral flexion 6/10 R hip pain at rest, 0/10 LBP L1-L5 hypomobility to CPA assessment, pain during L4-L5 CPA TTP throughout R piriformis and glute medius Assessment Progress Assessment Slower Than Expected Assessment Notes Pt has not attended physical therapy treatment since the initial evaluation. Pt has made improvements in L lateral flexion and extension AROM since the initial evaluation. Pt has made little to no improvements in level of pain or functional ability, likely due to non-compliance with PT POC. Recommend to continue with PT treatment sessions to improve functional ability and decrease pain level. Patient goals met 0 STG 0 LTG Goals Not Met 10/04 STG 01/07 LTG Plan Plan Continue with initial POC Frequency of Therapy 2x/wk Duration of therapy 6 additional weeks Time and Billing Re-Eval Time 10 Re-Eval Billing Units 1
== END 2022-12-18 08:35 | disposition home or self-care (01) ==
LOC: PT 08:30
PROVIDERS: PCP Family Medicine; Visit Provider Family Medicine
DX: M53.3 Sacrococcygeal disorders, not elsewhere classified (principal)
CPT/HCPCS: 20560; 97010; 97110; 97140; 97163; 97164

== ENCOUNTER → 2022-12-30 08:48 | Outpatient (CLI) | payer SELFPAY | PROVIDERS: PCP Family Medicine; Visit Provider Family Medicine | DX: M51.36 Other intervertebral disc degeneration, lumbar region (principal) ==

== ENCOUNTER 2023-06-09 11:39 | Outpatient (CLI) | payer OTHER, SELFPAY ==
--- NOTE | 2023-06-09 11:45 | XR_ITS ---
FINAL REPORT CLINICAL HISTORY: HISTORY OF COVID COMPARISON: 07/03/2020 FINDINGS: 2 views of the chest were obtained . The heart is normal in size. The mediastinum is within normal limits. The lungs are clear. There is no pneumothorax. Osseous structures are unremarkable. IMPRESSION: No acute cardiopulmonary process. Reviewed, Interpreted and Dictated by Gilbert Wellington III, MD Transcribed by Betty Collier Authenticated and [facility]
== END 2023-06-09 23:59 ==
LOC: RAD 11:40
PROVIDERS: PCP Family Medicine; Visit Provider Family Medicine
DX: Z86.16 Personal history of COVID-19 (principal); R06.09 Other forms of dyspnea
CPT/HCPCS: 71046

== ENCOUNTER 2025-01-14 13:26 | Outpatient (CLI) | payer OTHER, SELFPAY ==
--- OUTSIDE RECORDS SUMMARY | 2024-04-05 06:30 | XMS_ITS ---
Author Organization [facility] Address [address] [id number] Care Team Providers Care Metal Caster Name Role Phone Cinthia Marlow Primary Care Provider Allergies No Known Allergies REASON FOR VISIT 4 month f/u, Needs shingles & flu vaccines Medications Medication SIG (Take, Route, Frequency, Duration) Notes Start Date End Date Status Tamsulosin HCl 0.4 MG 1 capsule Orally O nce a day; Duration: 30 day(s) Active NITROGLYCERIN SPRAY 0.4/SPRAY DIRECTED SUBLINGUAL AREA PRN CHEST PAIN 07/22/2018 Active Aspirin 81 MG 1 tab(s) orally once a day; Duration: 30 days Active Flonase Allergy Relief 50 MCG/ACT 2 spray in each nostril Nasally Once a day; Duration: 30 day(s) 06/09/2023 Active traMADol HCl 50 MG 1 tablet as needed Orally 3 times a day as needed 04/05/2024 Active Temazepam 30 MG 1 cap(s) orally once a day as needed (at bedtime) 01/23/2024 Active Montelukast Sodium 10 MG 1 tab(s) orally bedtime; Duration: 90 days Active Sucralfate 1 GM 1 tab(s) orally 4 ti mes a day (before meals and at bedtime) Active Rosuvastatin Calcium 40 MG Take 1 tablet by mouth once daily; Duration: 90 Active Metoprolol Tartrate 25 MG 1 tab(s) orall y 2 times a day; Duration: 30 days Active CoQ10 100 MG 1 cap(s) orally once a day Active Esomeprazole Magnesium 40 MG 1 cap(s) or ally once a day Active Isosorbide Mononitrate ER 30 MG 1 tab Orally Two times a day Active Problems Problem Type SNOMED Code ICD Code Onset Dates Problem Status W/U Status Risk Notes Problem Generalized arthritis (703181135) Generalized arthritis (M19.90) Active confirmed Vital Signs Weight 266.4 lbs 04/05/2024 Blood pressure systolic 120 mm Hg 04/05/20 24 Blood pressure diastolic 84 mm Hg 024 Heart Rate 66 /min 04/05/2024 Height 75 in 04/05/2024 BMI 33.29 kg/m2 04/05/2024 Encounters Encounter Location Date Provider Diagnosis [facility] [address] [place] [id number] 04/05/2024 Cinthia Marlow Coronary artery dise ase involving resighini coronary artery of resighini heart without angina pectoris I25.10 ; Chronic rhinitis J31.0 ; Mixed hyperlipidemia E78.2 ; Actinic keratosis L57.0 and Generalized arthritis M19.90 Assessments Encounter Date Diagnosis (ICD Code) Assessment Notes Treatment Notes Treatment Clinical Notes Section Notes 04/05/2024 Coronary artery disease involving resighini coronary artery of resighini heart without angina pectoris (ICD-10 - I25.10) 04/05/2024 Chronic rhinitis (ICD-10 - J31.0) 04/05/2024 Mixed hyperlipidemia (ICD-10 - E78.2) 04/05/2024 Actinic keratosis (ICD-10 - L57.0) 04/05/2024 Generalized arthritis (ICD-10 - M19.90) Plan Of Treatment Medication Medication Name Sig Start Date Stop Date Notes Flonase Allergy Relief 50 MCG/ACT 2 spray in each nostril Nasally Once a day; Duration: 30 day(s) 06/09/2023 traMADol HCl 50 MG 1 tablet as needed O rally 3 times a day as needed 04/05/2024 Next Appt Details Follow Up: 4 Months, Reason: Provider Name:Cinthia Zamudio er, 08/01/2025 09:30:00 AM, [address], [address], [place], [id number], Procedure Notes * Category Sub-Category Detail Notes Cryotherapy Actinic Keratosis Reason for treatment: It was explained that actnic keratosis are precancerous Number of lesions treated: 1 Method: Jasiel LL-100 used to freeze and refreeze the lesions, The patient tolerated the procedure well. Post Op instruction: Post Op instruction s were given. Wash with vinegar water twice a day, Signs of infection were discussed. Apply Vaseline twice a day, The patient was informed to call if any signs of infection develop such as increasing pain, purulent drainage or beefy redness. The patient was informed that a blister may occur at the cryo site and that this is an expected event. The patient was instructed in solar protection using sunscreens SPF 30 or greater on exposed skin when outdoors. Progress Notes * WENDY ROUSEOB:1960 (64 yo M)Acc No.[id number]:04/05/2024 Progress Notes Patient: APOLONIA ABRAHAM Provider: Cinthia Marlow M.D. :1960 A ge:63 Y S ex:Male Date:04/05/2024 Address:[address] [place] [phone] Subjective: * Chief Complaints: * 1 . 4 month f/u. 2. Needs shingles & flu vaccines. * HPI: C ardiology: The patient is here for a check up on CAD and Hyperlipidemia. Pt states he has a spot on the left upper cheek he would like checked out. Pt states this has been present for a couple months and does not seem to want to heal up. Pt states it has been bleeding some and he has been using Neosporin and that has helped a little. Pt states he is not fasting. Pt states he is needing refills for Fluticasone nasal spray and Tramadol sent to [facility] in [place]. Denies : Chest Pain. D enies : Short of Breath. D enies : Dizziness. D enies : Palpitations. * ROS: D ERMATOLOGY: no R erasmo. n o H shlomo. G ASTROENTEROLOGY: no N ausea. n o V omiting. n o D iarrhea.? U ROLOGY: no D ifficulty urinating. n o B lood in urine. * Medical History: K idney stones, Acute Angina Pectoris (01/18), Chronic Coronary Artery Disease (01/18), Chronic Hyperlipidemia (01/18), Chronic Hypertension (01/18), 01/02/19 EF=65%, COVID 19 Vaccine, Moderna, Feb 2020. * Surgical History: h ernia repair 2004, Heart Cath 07/21, [facility]- heart stint 01/04/19, Right Meniscal tear repair-Dr Villa 12/2019. * Hospitalization/Major Diagno stic Procedure: [facility] - Heart Attack 07/17/18-07/19/18, [facility]- acute angina pectoris 01/02-01/05/19. * Family History: F ather: alive, diagnosed with Heart Disease. M other: alive. 2 brother(s) - healthy. 1 son(s) , 1 daughter(s) - healthy. . * Social History: C URRENT TOBACCO USE: No . C affeine: yes, frequency:. Exercise: no. Home smoke detector use: yes. Past smoking status: previous history, quit 1988. Recreational drug use: no. * Medications: T aking Tamsulosin HCl 0.4 MG Capsule 1 capsule Orally Once a day , Taking NITROGLYCERIN SPRAY 0.4/SPRAY DIRECTED SUBLINGUAL AREA PRN CHEST PAIN , Taking Aspirin 81 MG Tablet Delayed Release 1 tab(s) orally once a day , Taking Metoprolol Tartrate 25 MG Tablet 1 tab(s) orally 2 times a day , Taking CoQ10 100 MG Capsule 1 cap(s) orally once a day , Taking traMADol HCl 50 MG Tablet 1 tablet as needed Orally 3 times a day as needed , Taking Rosuvastatin Calcium 40 MG Tablet Take 1 tablet by mouth once daily , Taking Isosorbide Mononitrate ER 30 MG Tablet Extended Release 24 Hour 1 tab Orally Two times a day , Taking Flonase Allergy Relief 50 MCG/ACT Suspension 2 spray in each nostril Nasally Once a day , Taking Esomeprazole Magnesium 40 MG Capsule Delayed Release 1 cap(s) orally once a day , Taking Sucralfate 1 GM Tablet 1 tab(s) orally 4 times a day (before meals and at bedtime) , Taking Temazepam 30 MG Capsule 1 cap(s) orally once a day as needed (at bedtime) , Taking Montelukast Sodium 10 MG Tablet 1 tab(s) orally bedtime , Discontinued Meloxicam 15 MG Tablet 1 tab(s) orally once a day , Discontinued Cyclobenzaprine HCl 10 MG Tablet 1 tab(s) orally At Bed Time , Medication List reviewed and reconciled with the patient * Allergies: N .K.D.A. Objective: * Vitals: W t:266.4, Temp:98.4, BP:120/84, HR:66, Nurse:JOSE, Ht: 75, BMI:33.29. * Examination: G eneral Examination: General Appearance: N AD. H EENT: e xcoriated lesion of the left lower lid, lateral aspect, 4mm. O ral cavity: n o lesions, mucosa moist and WNL, no erythema. N joel: s upple, no lymphadenopathy. C hest: n ormal shape and expansion. H eart: R SR, no ectopics, S4 present. L ungs: c lear to auscultation. A bdomen: soft and nontender. N eurologic Exam: I ntact, gait normal. S kin: n ormal, no rash. P eripheral pulses: n ormal. E xtremities: n o leg edema. ? Assessment: * Assessment: 1. C oronary artery disease involving resighini coronary artery of resighini heart without angina pectoris - I25.10 (Primary) 2 . C hronic rhinitis - J31.0 3 . M ixed hyperlipidemia - E78.2 4 . A ctinic keratosis - L57.0 5 . Generalized arthritis - M19.90 Plan: * Treatment: 2. G eneralized arthritis Continue traMADol HCl Tablet, 50 MG, 1 tablet as needed, Orally, 3 times a day as needed, 90, Refills 1. * Procedures: C ryotherapy Actinic Keratosis: Reason for treatment: I t was explained that actnic keratosis are precancerous. N umber of lesions treated: 1 . M ethod: W allach LL-100 used to freeze and refreeze the lesions, The patient tolerated the procedure well.. P ost Op instruction: P ost Op instructions were given. Wash with vinegar water twice a day, Signs of infection were discussed. Apply Vaseline twice a day, The patient was informed to call if any signs of infection develop such as increasing pain, purulent drainage or beefy redness. The patient was informed that a blister may occur at the cryo site and that this is an expected event. The patient was instructed in solar protection using sunscreens SPF 30 or greater on exposed skin when outdoors.. ? * Follow Up: 4 Months * Images: Billing Information: * Visit Code: 17955 Office Visit, Est Pt., Level 4. * Procedure Codes: * Electronic signature of Cinthia Marlow MD on 01/14/2025 at 01:28 PM EDT Sign off status: Pending * Provider: Cinthia Marlow M.D. Date: 06/05/2023 Generated for Eli beltran/Clifford/eTransmitting on: 0 01/14/2025 01:28 PM EDT History and Physical Notes * HPI (History of Present Illness) Category Sub-Category Detail Notes Category Not es Cardiology Short of Breath Chest Pain Palpitations Dizziness Examination Category Sub-Category Detail Notes Category Not es General Examination HEENT: excoriated l esion of the left lower lid, lateral aspect, 4mm Heart: RSR, no ectopics, S4 present Lungs: clear to auscultatio n Abdomen: soft and nontender Extremities: no leg edema General Appearance: NAD Skin: normal, no rash Neurologic Exam: Intact, gait normal Neck: supple, no lymphaden opathy Oral cavity: no lesions, mucosa m oist and WNL, no erythema Peripheral pulses: normal Chest: normal shape and exp ansion
--- OUTSIDE RECORDS SUMMARY | 2024-08-02 06:00 | XMS_ITS ---
Author Organization [facility] Address [address] [facility] [address] [id number] Care Team Providers Care Certified Professional Midwife Name Role Phone Cinthia Marlow Primary Care Provider Allergies No Known Allergies REASON FOR VISIT 4 month, Needs labs & shingles vaccine Medications Medication SIG (Take, Route, Frequency, Duration) Notes Start Date End Date Status Metoprolol Tartrate 25 MG 1 tab(s) orall y 2 times a day; Duration: 30 days Active CoQ10 100 MG 1 cap(s) orally once a day Active Rosuvastatin Calcium 40 MG Take 1 tablet by mouth once daily; Duration: 90 Active Isosorbide Mononitrate ER 30 MG 1 tab Orally Two times a day Active Montelukast Sodium 10 MG 1 tab(s) orally bedtime; Duration: 90 days Active Aspirin 81 MG 1 tab(s) orally once a day; Duration: 30 days Active Temazepam 30 MG 1 cap(s) orally once a day as needed (at bedtime) 08/02/2024 Active Tamsulosin HCl 0.4 MG 1 capsule Orally O nce a day; Duration: 30 day(s) Active NITROGLYCERIN SPRAY 0.4/SPRAY DIRECTED SUBLINGUAL AREA PRN CHEST PAIN 07/22/2018 Active Sucralfate 1 GM 1 tab(s) orally 4 ti mes a day (before meals and at bedtime) Active traMADol HCl 50 MG 1 tablet as needed Orally 3 times a day as needed 04/05/2024 Active Flonase Allergy Relief 50 MCG/ACT 2 spray in each nostril Nasally Once a day; Duration: 30 day(s) 06/09/2023 Active Esomeprazole Magnesium 40 MG 1 cap(s) or ally once a day Active Vital Signs Weight 269.2 lbs 08/02/2024 Blood pressure systolic 134 mm Hg 08/03/19 25 Blood pressure diastolic 80 mm Hg 025 Heart Rate 68 /min 08/02/2024 Height 75 in 08/02/2024 BMI 33.64 kg/m2 08/02/2024 Encounters Encounter Location Date Provider Diagnosis [facility] [address] [place] [address] [address] [facility] [address] [place], [place] [id number] 08/02/2024 Cinthia Marlow Coronary artery disease involving lytton coronary 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 angina pectoris I25.10 ; History of coronary artery stent placement Z95.5 ; Sacroiliac joint pain M53.3 and Primary insomnia F51.01 Assessments Encounter Date Diagnosis (ICD Code) Assessment Notes Treatment Notes Treatment Clinical Notes Section Notes 08/02/2024 Coronary artery disease involving lytton coronary 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 angina pectoris (ICD-10 - I25.10) 08/02/2024 History of coronary artery stent placement (ICD-10 - Z95.5) 08/02/2024 Sacroiliac joint pain (ICD-10 - M53.3) 08/02/2024 Primary insomnia (ICD-10 - F51.01) Plan Of Treatment Medication Medication Name Sig Start Date Stop Date Notes Temazepam 30 MG 1 cap(s) orally once a day as needed (at bedtime) 08/02/2024 Next Appt Details Follow Up: 5 month, Reason: Provider Name:Cinthia Zamudio er, 08/01/2025 09:30:00 AM, [address] [place] [address] 36 [facility], [address], [place], [place], [phone], Progress Notes * WENDY ROUSEOB:1960 (64 yo M)Acc No.[id number]:08/02/2024 Progress Notes Patient: APOLONIA ABRAHAM Provider: Cinthia Marlow M.D. :1960 A ge:64 Y S ex:Male Date:08/02/2024 Address:[address] Subjective: * Chief Complaints: * 1 . 4 month. 2. Needs labs & shingles vaccine. * HPI: C ardiology: The patient is here for a check up on CAD and Hyperlipidemia. Pt states he doing good and denies any new concerns today. Pt is not fasting. Denies : Chest Pain. D enies : Short of Breath. D enies : Dizziness. D enies : Palpitations. P sychology: The pt is needing and refill for Temazepam sent to [facility] in [place]. Pt states this does help with the Insomnia. D ermatology: The pt states he saw Dermatology and had a biopsy of the skin lesion on the left cheek below the eye. c/o skin lesion. * ROS: D ERMATOLOGY: no R erasmo. [...] h ernia repair 2004, Heart Cath 07/21, [facility]- heart stint 01/04/19, Right Meniscal tear repair-Dr Villa 12/2019. * Hospitalization/Major Diagno stic Procedure: O [facility] - Heart Attack 07/17/18-07/19/18, [facility]- acute angina pectoris 01/02-01/05/19. * Family History: [...] cap(s) orally once a day , Taking Rosuvastatin Calcium 40 MG Tablet Take 1 tablet by mouth once daily , Taking Isosorbide Mononitrate ER 30 MG Tablet Extended Release 24 Hour 1 tab Orally Two times a day , Taking Montelukast Sodium 10 MG Tablet 1 tab(s) orally bedtime , Taking traMADol HCl 50 MG Tablet 1 tablet as needed Orally 3 times a day as needed , Taking Flonase Allergy Relief 50 MCG/ACT Suspension 2 spray in each nostril Nasally Once a day , Taking Temazepam 30 MG Capsule 1 cap(s) orally once a day as needed (at bedtime) , Taking Esomeprazole Magnesium 40 MG Capsule Delayed Release 1 cap(s) orally once a day , Taking Sucralfate 1 GM Tablet 1 tab(s) orally 4 times a day (before meals and at bedtime) , Medication List reviewed and reconciled with the patient * Allergies: N .K.D.A. Objective: * Vitals: W t:269.2, Temp:98.1, BP:134/80, HR:68, Nurse:JOSE, Ht: 75, BMI:33.64. * Examination: G eneral Examination: General Appearance: N AD. H EENT: lesion of the left lower lid, lateral aspect, healing wound with ointment. O ral cavity: n o lesions, mucosa moist and WNL, no erythema. N joel: s upple, no lymphadenopathy. C hest: n ormal shape and expansion. H eart: R SR, no ectopics, S4 present. L ungs: c lear to auscultation. A bdomen: soft and nontender. N eurologic Exam: I ntact, gait normal.?Skin: n ormal, no rash. P eripheral pulses: n ormal. E xtremities: n o leg edema. Assessment: * Assessment: 1. C oronary artery disease involving lytton coronary 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 angina pectoris - I25.10 (Primary) 2 . H istory of coronary artery stent placement - Z95.5? 3. S acroiliac joint pain - M53.3 4 . P rimary insomnia - F51.01 Plan: * Treatment: * Procedure Codes: 3 075F SYST BP GE 130 - 139MM HG, 3079F DIAST BP 80-89 MM HG * Follow Up: 5 month * Images: Billing Information: * Visit Code: 38520 Office Visit, Est Pt., Level 4. * Procedure Codes: 3075F SYST BP GE 130 - 139MM HG. 3079F DIAST BP 80-89 MM HG. * Electronic signature of Cinthia Marlow MD on 01/14/2025 at 01:28 PM EDT Sign off status: Pending * Provider: Cinthia Marlow M.D. Date: 0 08/02/2024 Generated for Eli beltran/Clifford/Saira on: 0 01/14/2025 01:28 PM EDT History and Physical Notes * HPI (History of Present Illness) Category Sub-Category Detail Notes Category Not es Dermatology skin lesion Cardiology Short of Breath Chest Pain Palpitations Dizziness Examination Category Sub-Category Detail Notes Category Not es General Examination HEENT: lesion of th e left lower lid, lateral aspect, healing wound with ointment Heart: RSR, no ectopics, S4 present Lungs: clear to auscultatio n Abdomen: soft and nontender Extremities: no leg edema General Appearance: NAD Skin: normal, no rash Neurologic Exam: Intact, gait normal Neck: supple, no lymphaden opathy Oral cavity: no lesions, mucosa m oist and WNL, no erythema Peripheral pulses: normal Chest: normal shape and exp ansion
--- OUTSIDE RECORDS SUMMARY | 2025-01-03 05:30 | XMS_ITS ---
Author Organization [facility] Address [address] [facility] [address] [place] [phone] Care Team Providers Care Warehouse Driver Name Role Phone Cinthia Marlow Primary Care Provider [phone] Allergies No Known Allergies Results Component Value Reference Range Notes Glycohemoglobin A1c (in hous e) Reviewed date:01/04/2025 10:34:45 AM Interpretation:Normal Performing Lab: Notes/Report: Normal glycohemoglobin 5.6% 5 - 6.5 % P-Comprehensive Metabolic Pa minda (CMP) Reviewed date:01/04/2025 10:34:45 AM Interpretation:Normal Performing Lab: Notes/Report: Test performed by [employer] [employer] [address] [place] [address] , [address], [place] [address] Jordan Singleton MD, [employer] Manager CLIA: [id number] Sodium 140 135-145 mmol/L Potassium 4.8 3.5-5.3 mmol/L Chloride 104 97-108 mmol/L CO2 27 20-32 mmol/L Glucose 101 65-99 mg/dL BUN 18 8-23 mg/dL Creatinine 1.06 0.70-1.30 mg/dL Calcium 9.9 8.6-10.4 mg/dL eGFR by Creatinine 78 >59 mL/min/1.73m2 Protein 6.8 6.0-8.3 g/dL Albumin 4.5 3.5-5.3 g/dL Alkaline Phosphatase 61 40-129 IU/L ALT (SGPT) 26 <5-55 IU/L AST (SGOT) 20 <5-46 IU/L Bilirubin, Total 0.4 <0.2-1.2 mg/dL A/G Ratio 2.0 1.1-2.5 P-Lipid Panel Reviewed date:01/04/2025 10:34:45 AM Interpretation:trigs 207 Performing Lab: Notes/Report: Test performed by [employer] [address] , [address], [place] [address] Jordan Singleton MD, Auto Body [employer] Manager CLIA: [id number] Cholesterol 141 <200 mg/dL Triglycerides 207 <150 mg/dL HDL Cholesterol 46 >39 mg/dL Cholesterol / HDL Ratio 3.07 0.00-4.99 Ratio Non-HDL Cholesterol 95 <130 mg/dL LDL Cholesterol (Calculation) 54 <130 mg/dL LDL Cholesterol Levels* Less than 100 mg/dL Optimal 100 to 129 mg/dL Near Optimal/ Above Optimal 130 to 159 mg/dL Borderline High 160 to 189 mg/dL High 190 mg/dL and above Very High * Categories as recommended by the 2004 ATPIII guidelines LDL/HDL Ratio 1.2 <3.3 Ratio LDL Cholesterol Patient History Test Date: 07/31/2023 LDL Results: 70 Units: mg/dL % Change: +22% Test Date: 02/05/2024 LDL Results: 68 Units: mg/dL % Change: -2% Test Date: 01/03/2025 LDL Results: 54 Units: mg/dL % Change: -20% P-PSA Reviewed date:01/04/2025 10:34:45 AM Interpretation:Normal Performing Lab: Notes/Report: Test performed by [employer] [address] [place] [address] , [place] [address] Jordan Singleton MD, Auto Body [employer] Manager CLIA: [id number] PSA 3.26 <4.00 ng/mL Please note this is an ultrasensitive PSA assay with a lower limit of detection of 0.014 ng/mL. This test is performed by the [employer] ECLIA methodology. Values obtained with different assay methods or kits cannot be directly compared. REASON FOR VISIT 5 month check, Needs labs & shingles vaccine Medications Medication SIG (Take, Route, Frequency, Duration) Notes Start Date End Date Status CoQ10 100 MG 1 cap(s) orally once a day Active Metoprolol Tartrate 25 MG 1 tab(s) orall y 2 times a day; Duration: 30 days Active Aspirin 81 MG 1 tab(s) orally once a day; Duration: 30 days Active NITROGLYCERIN SPRAY 0.4/SPRAY DIRECTED SUBLINGUAL AREA PRN CHEST PAIN 07/22/2018 Active Tamsulosin HCl 0.4 MG 1 capsule Orally O nce a day; Duration: 30 day(s) Active Sucralfate 1 GM 1 tablet on an empty stomach Orally 4 times a day; Duration: 30 days Active traMADol HCl 50 MG 1 tablet as needed Orally as needed; Duration: 30 days 01/03/2025 Active Temazepam 30 MG 1 cap(s) orally once a day as needed (at bedtime) 11/30/2024 Active Esomeprazole Magnesium 40 MG Take 1 caps ule by mouth once daily; Duration: 90 Active Montelukast Sodium 10 MG TAKE 1 TABLET B Y MOUTH AT BEDTIME; Duration: 90 Active Flonase Allergy Relief 50 MCG/ACT 2 spray in each nostril Nasally Once a day; Duration: 30 day(s) 06/09/2023 Active Isosorbide Mononitrate ER 30 MG 1 tab Orally Two times a day Active Rosuvastatin Calcium 40 MG Take 1 tablet by mouth once daily; Duration: 90 Active Problems Problem Type SNOMED Code ICD Code Onset Dates Problem Status W/U Status Risk Notes Problem Aortic valve sclerosis (89127753) Aortic valve sclerosis (I35.8) Active confirmed Vital Signs Weight 264.0 lbs 01/03/2025 Blood pressure systolic 150 mm Hg 01/04/20 25 Blood pressure diastolic 84 mm Hg 025 Heart Rate 75 /min 01/03/2025 Height 75 in 01/03/2025 BMI 32.99 kg/m2 01/03/2025 Encounters [facility]counter [facility] Date [facility] [address] [id number] 01/03/2025 Cinthia Marlow History of coronary artery stent placement Z95.5 ; Coronary artery disease involving platinum coronary artery of platinum heart without angina pectoris I25.10 ; Mixed hyperlipidemia E78.2 ; Gastroesophageal reflux disease without esophagitis K21.9 ; Primary insomnia F51.01 ; Hyperglycemia R73.9 ; Benign non-nodular prostatic hyperplasia without lower urinary tract symptoms N40.0 ; Aortic valve sclerosis I35.8 ; Generalized arthritis M19.90 and Trigger thumb, right thumb M65.311 Assessments Encounter Date Diagnosis (ICD Code) Assessment Notes Treatment Notes Treatment Clinical Notes Section Notes 01/03/2025 History of coronary artery stent placement (ICD-10 - Z95.5) 01/03/2025 Coronary artery disease involving platinum coronary artery of platinum heart without angina pectoris (ICD-10 - I25.10) 01/03/2025 Mixed hyperlipidemia (ICD-10 - E78.2) 01/03/2025 Gastroesophageal reflux disease without esophagitis (ICD-10 - K21.9) 01/03/2025 Primary insomnia (ICD-10 - F51.01) 01/03/2025 Hyperglycemia (ICD-10 - R73.9) 01/03/2025 Benign non-nodular prostatic hyperplasia without lower urinary tract symptoms (ICD-10 - N40.0) 01/03/2025 Aortic valve sclerosis (ICD-10 - I35.8) 01/03/2025 Generalized arthritis (ICD-10 - M19.90) Tramadol 3 times a day as needed #90 RF1 01/03/2025 Trigger thumb, right thumb (ICD-10 - M65.311) Plan Of Treatment Medication Medication Name Sig Start Date Stop Date Notes traMADol HCl 50 MG 1 tablet as needed O rally as needed; Duration: 30 days 01/03/2025 Treatment Notes Assessment Notes Generalized arthritis Tramadol 3 times a day as needed #90 RF1 Pending Test Test Name Order Date Echocardiogram 01/03/2025 Next Appt Details Follow Up: 6 Months, Reason: Provider Name:Cinthia Zamudio er, 08/01/2025 09:30:00 AM, [address] [facility] 36 [facility], [address], [place], [place], [phone], Progress Notes * WENDY ROUSEOB:1960 (64 yo M)Acc No.[id number]:01/03/2025 Progress Notes Patient: APOLONIA ABRAHAM Provider: Cinthia Marlow M.D. :1960 A ge:64 Y S ex:Male Date:01/03/2025 Address:[address] Subjective: * Chief Complaints: * 1 . 5 month check. 2. Needs labs & shingles vaccine. * HPI: P ain: The pt is here today for a check up on chronic pain. Pt states he is needing a refill for Tramadol sent to health system in [place]. Pt states over the past few months he has had pain in his right thumb. C ardiology: The pt is here for a check up on Hyperlipidemia. Pt is not fasting today. Denies : Chest Pain. D enies : [...] h ernia repair 2004, Heart Cath 07/21, [facility]- heart stent 01/04/19, Right Meniscal tear repair-Dr Villa 12/2019. * Hospitalization/Major Diagno stic Procedure: O [facility] - Heart Attack 07/17/18-07/19/18, [facility]- acute angina pectoris 01/02-01/05/19. * Family History: [...] nostril Nasally Once a day , Taking Montelukast Sodium 10 MG Tablet TAKE 1 TABLET BY MOUTH AT BEDTIME , Taking Esomeprazole Magnesium 40 MG Capsule Delayed Release Take 1 capsule by mouth once daily , Taking traMADol HCl 50 MG Tablet 1 tablet as needed Orally 3 times a day , Taking Temazepam 30 MG Capsule 1 cap(s) orally once a day as needed (at bedtime) , Taking Sucralfate 1 GM Tablet 1 tablet on an empty stomach Orally 4 times a day , Medication List reviewed and reconciled with the patient * Allergies: N .K.D.A. Objective: * Vitals: W t: 264.0, Temp: 98.6, BP: 150/84, HR: 75, Nurse: JOSE, Ht: 75, Repeat BP: 132/82, BMI:32.99. * Examination: G eneral Examination: General Appearance: N AD. H EENT: l esion of the left lower lid, is healed lateral aspect. O ral cavity: n o lesions, mucosa moist and WNL, no erythema. N joel: s upple, no lymphadenopathy. C hest: n ormal shape and expansion. Heart: R SR, no ectopics, S4 present. Subtle diastolic murmur.. L ungs: c lear to auscultation. A bdomen: soft and nontender. N eurologic Exam: I ntact, gait normal. S kin: n ormal, no rash. P eripheral pulses: n ormal. E xtremities: n o leg edema. Assessment: * Assessment: 1. H istory of coronary artery stent placement - Z95.5 (Primary) 2 . C oronary artery disease involving platinum coronary artery of platinum heart without angina pectoris - I25.10? 3. M ixed hyperlipidemia - E78.2 4 . G astroesophageal reflux disease without esophagitis - K21.9 5 . P rimary insomnia - F51.01 ? 6 . H yperglycemia - R73.9 7 . B enign non-nodular prostatic hyperplasia without lower urinary tract symptoms - N40.0 8 . A ortic valve sclerosis - I35.8 9 . G eneralized arthritis - M19.90 1 0. T sales specialist thumb, right thumb - M65.311 Plan: * Treatment: 2.?Mixed hyperlipidemia?LAB: P-Comprehensive Metabolic Panel (CMP) (Collection Date & Time - 01/03/2025 09:09 AM)?Normal* Value Reference Range A /G Ratio 2.0 1.1-2.5 - * A lbumin 4.5 3.5-5.3 - g/dL * A lkaline Phosphatase 61 40-129 - IU/L * A LT (SGPT) 26 <5-55 - IU/L * A ST (SGOT) 20 <5-46 - IU/L * B ilirubin, Total 0.4 <0.2-1.2 - mg/dL * B UN 18 8-23 - mg/dL * C alcium 9.9 8.6-10.4 - mg/dL * C hloride 104 97-108 - mmol/L * C O2 27 20-32 - mmol/L * C reatinine 1.06 0.70-1.30 - mg/dL * G lucose 101 H 65-99 - mg/dL * P otassium 4.8 3.5-5.3 - mmol/L * S odium 140 135-145 - mmol/L * P rotein 6.8 6.0-8.3 - g/dL * e GFR by Creatinine 78 >59 - mL/min/1.73m2 * Ruth Herron 01/04/2025 10:34 :39 AM EDT > See phone encounter ?LAB: P-Lipid Panel (Collection Date & Time - 01/03/2025 09:09 AM)?trigs 207 * Value Reference Range C holesterol / HDL Ratio 3.07 0.00-4.99 - Ratio * C holesterol 141 <200 - mg/dL * H DL Cholesterol 46 >39 - mg/dL * L DL Cholesterol (Calculation) 54 <130 - mg/d L * L DL/HDL Ratio 1.2 <3.3 - Ratio * N on-HDL Cholesterol 95 <130 - mg/dL * T riglycerides 207 H <150 - mg/dL * Ruth Herron 01/04/2025 10:34 :39 AM EDT > See phone encounter 3.?Hyperglycemia?LAB: Glycohemoglobin A1c (in house) (Collection Date & Time - 01/03/2025)? Normal* Value Reference Range g lycohemoglobin 5.6% 5 - 6.5 % * Rubia Zarco 01/03/2025 01: 37:17 PM EDT > Ruth Herron 01/04/2025 10:34:39 AM EDT > See phone encounter 4.?Benign non-nodular prostatic hyperplasia without lower urinary tract symptoms ?LAB: P-PSA (Collection Date & Time - 01/03/2025 09:09 AM)?Normal* Value Reference Range P SA 3.26 <4.00 - ng/mL * Ruth Herron 01/04/2025 10:34 :39 AM EDT > See phone encounter 5.?Aortic valve sclerosis?Imaging: Echocardiogram* aortic sclerosis, subtle barney stolic murmurTayCassie rutherford 01/03/2025 10:20:18 AM EDT > auth#[id number]; valid 01/03/2025-03/04/2025; CPT code 91658; faxed to [facility] Scheduling 6.?Generalized arthritis? Refill traMADol HCl Tablet, 50 MG, 1 tablet as needed, Orally, as needed, 30 days, 90, Refills 1. ? Notes: Tramadol 3 times a day as needed #90 RF1?? * Procedure Codes: 1 036F TOBACCO NON-USER, 3044F HG A1C LEVEL LT 7.0%, 3075F SYST BP GE 130 - 139MM HG, 3079F DIAST BP 80-89 MM HG * Follow Up: 6 Months * Images: Billing Information: * Visit Code: 72303 Office Visit, Est Pt., Level 4. * Procedure Codes: 1036F TOBACCO NON-USER. 3044F HG A1C LEVEL LT 7.0%. 3075F SYST BP GE 130 - 139MM HG. 3079F DIAST BP 80-89 MM HG. * Electronic signature of Cinthia Marlow MD on 01/14/2025 at 01:28 PM EDT Sign off status: Pending * Provider: Cinthia Marlow M.D. Date: 01/03/2025 Generated for Eli beltran/Kadyg/eTransmitting on: 01/14/2025 01:28 PM EDT History and Physical Notes * HPI (History of Present Illness) Category Sub-Category Detail Notes Category Not es Cardiology Short of Breath Chest Pain Palpitations Dizziness Examination Category Sub-Category Detail Notes Category Not es General Examination HEENT: lesion of th e left lower lid, is healed lateral aspect Heart: RSR, no ectopics, S4 present. Subtle diastolic murmur. Lungs: clear to auscultatio n Abdomen: soft and nontender Extremities: no leg edema General Appearance: NAD Skin: normal, no rash Neurologic Exam: Intact, gait normal Neck: supple, no lymphaden opathy Oral cavity: no lesions, mucosa m oist and WNL, no erythema Peripheral pulses: normal Chest: normal shape and exp ansion
--- NOTE | 2025-01-14 13:28 | CA_ITS ---
APPROVED REPORT EXAM: Comprehensive 2D, Doppler, and color-flow Echocardiogram Centerpuncher: FAROOQ Andrew, RVS Ht: 6 ft 4 in Wt: 266lbs BSA: 2.50 BP: 151/86 mmHg Indications: Aortic sclerosis, HTN, HLD, CAD, H/o-MA 2D Dimensions Left Atrium 3.95 cm M: 3.0 - 4.0 LA Volume 61.80 mL LA Volume Index 24.974665 mL/m2 (M/F) 16-34 EF AP4 61.50 % GL Strain -20.0 % M-Mode Dimensions RVDd 3.31 cm (0.9-2.6) LA Diam 4.04 cm (1.9-4.0) LVDd 5.08 cm (3.5-5.7) LVDs 3.95 cm (3.5-5.7) IVSd 1.10 cm (0.6-1.1) PWd 1.14 cm (0.6-1.1) EF (Teich) 52.60% EPSs 0.23 cm FS 27.30% EDV (Teich) 143.10 mL TAPSE 3.15 (<1.7) ESV (Teich) 67.90 mL LV Diastology E Decel Time 170 (160-240 msec) E/A Ratio 1.34 MED A' 9.70 cm/s LAT A' 14.90 cm/s Aortic Valve TIM Index 1.07 cm2/m2 AoV Peak Jamir. 155.0 (50-130 cm/s) AO Peak GR. 9.60 mmHg AO Mean GR. 4.80 (<5 mmHg) AO VTI 31.2 (18-25 cm) TIM (VTI) 2.73 (2.5-4.5 cm2) Mitral Valve MV A Velocity 62.0 (40-130 cm/s) E/A Ratio 1.34 Pulmonary Valve PV Peak Velocity 110.0 (50-150 cm/s) Left Ventricle The left ventricle is normal size. Left ventricular systolic function is normal. The left ventricular ejection fraction is within the normal range. There is increased left ventricular wall thickness. There is normal LV segmental wall motion. Transmitral Doppler flow pattern suggests impaired LV relaxation. LVEF is 55% Right Ventricle The right ventricle is normal size. The right ventricular systolic function is normal. Atria The left atrium size is normal. The right atrium size is normal. There is no color Doppler evidence of interatrial shunt. Aortic Valve The aortic valve is mildly thickened. There is no hemodynamically significant aortic valvular stenosis. No aortic regurgitation is present. Mitral Valve The mitral valve is normal in structure. No evidence of mitral valve stenosis. Trace mitral regurgitation is present. Tricuspid Valve The tricuspid valve leaflets are thin and pliable. Trace tricuspid regurgitation. There is insufficient TR jet to estimate RVSP. Pulmonic Valve The pulmonary valve is grossly normal in structure. Trace pulmonic valve regurgitation is present. Great Vessels The aortic root is normal in size. IVC is normal in size and collapses >50% with inspiration. Pericardium There is no pericardial effusion. Other Information Study Quality: Fair Conclusion Normal biventricular systolic function. No significant valvular stenosis or regurgitation. Electronically signed by : Nai Diane MD 01/15/2025 14:18:00
--- OUTSIDE RECORDS SUMMARY | 2025-01-14 13:28 | XMS_ITS | Clinical Summary ---
Author Organization [facility] Address [address] [place] [address] Phone Care Team Providers Care Superintendent [employer] Name Role Phone Gavin Brown MD, Damaso [place] Primary Care Provid er Allergies No known active allergies Medications fish oil omega 3-dha-epa 300-1,000 mg Oral Capsule, Delayed Release(E.C.) Take 2 g by mouth daily. Active UNKNOWN TO PATIENT 2 times daily. Cholesterol med Active LANSOPRAZOLE (PREVACID ORAL) Take by mouth daily. Active aspirin 81 mg Oral Tablet, Chewable Take 81 mg by mouth daily. Active Immunizations Immunization Administration Dates Next Due Tdap 11/19/2015 Medical History Medical History Date Comments Hypercholesteremia Social History Tobacco Use Types Packs/Day Years Used Date Smoking Tobacco: Never Smokeless Tobacco: Never Alcohol Use Standard Drinks/Week Comments No 0 (1 standard drink = 0.6 oz pur e alcohol) Sex and Gender Information Value Date Recorded Sex Assigned at Not on file Legal Sex Male 6:18 AM EDT Gender Identity Not on file Sexual Orientation Not on file Obstetrics History Last Filed Vital Signs Vital Sign Reading Time Taken Comments Blood Pressure 136/78 11/19/2015 1:48 PM EDT Pulse 68 11/19/2015 1:48 PM EDT Temperature 36.9 C (98.4 F) 11/19/2015 1:48 PM EDT Respiratory Rate 16 11/19/2015 1:48 PM EDT Oxygen Saturation 99% 11/19/2015 1:48 PM EDT Inhaled Oxygen Concentration - - Weight 115.7 kg (255 lb) 11/19/2015 11:22 AM EDT Height 193 cm (6' 4 ) 11/19/2015 11:22 AM EDT Body Mass Index 31.04 11/19/2015 11:22 AM EDT Plan of Treatment Health Maintenance Due Date Last Done Comments Annual Wellness Exam 1963 Hepatitis C Screening 1978 Cologuard 2005 Colon Cancer Screening 2005 Colonoscopy 2005 FIT 2005 Sigmoidoscopy 2005 Virtual Colonography 2005 Pneumococcal Vaccine 50+ (1 of 1 - PCV) 2010 Zoster (1 of 2) 2010 COVID-19 Vaccine (1 - 2023-2 5 season) 2024 Influenza Vaccine (#1) 2025 DTaP/TDaP/Td (2 - Td or Tdap) 11/18/2025 11/19/2015 Hepatitis B Vaccine Aged Out No longe r eligible based on patient's age to complete this topic Meningococcal B Vaccine Aged Out No l onger eligible based on patient's age to complete this topic Insurance [facility] PPO on file Care Teams Superintendent [employer] Relationship Specialty Start Date End Date Damaso Alonso Sr., MD [address] [place] [phone] PCP - General Blunger Loader 11/19/15
--- OUTSIDE RECORDS SUMMARY | 2025-01-14 13:29 | XMS_ITS | Patient Health Record ---
[facility] Address [address] [facility] [address] [place] [id number] Care Team Providers Care Newspaper Inserter Name Role Phone Cinthia Marlow Primary Care Provider [place] Unavailable [phone] Allergies No Known Allergies Results Component Value Reference Range Notes Glycohemoglobin A1c (in hous e) Reviewed date:01/04/2025 10:34:45 AM Interpretation:Normal Performing Lab: Notes/Report: Normal glycohemoglobin 5.6% 5 - 6.5 % P-Comprehensive Metabolic Pa minda (CMP) Reviewed date:01/04/2025 10:34:45 AM Interpretation:Normal Performing Lab: Notes/Report: Test performed by [facility] [address] [place] [address] , [address], [place] [address] Jordan Singleton MD, Roll Coverer CLIA: [id number] Sodium 140 135-145 mmol/L Potassium 4.8 3.5-5.3 [...] 207 Performing Lab: Notes/Report: Test performed by [facility] [address] [facility] [address], [place] [address] Jordan Singleton MD, Roll Coverer CLIA: [id number] Cholesterol 141 <200 mg/dL Triglycerides 207 <150 [...] Interpretation:Normal Performing Lab: Notes/Report: Test performed by [facility] [address] , [place] [address] Jordan Singleton MD, Roll Coverer CLIA: [id number] PSA 3.26 <4.00 ng/mL Please note this is an ultrasensitive PSA assay with a lower limit of detection of 0.014 ng/mL. This test is performed by the [employer] ECLIA methodology. Values obtained with different assay methods or kits cannot be directly compared. P-PSA Reviewed date:02/16/2024 11:11:46 AM Interpretation:Normal Performing Lab: Notes/Report: Test performed by [facility] [address] [place], [place] [address] , [place] [address] Jordan Singleton MD, Roll Coverer CLIA: [id number] PSA 3.16 <4.00 ng/mL Please note this is an ultrasensitive PSA assay with a lower limit of detection of 0.014 ng/mL. This test is performed by the [employer] ECLIA methodology. Values obtained with different assay methods or kits cannot be directly compared. P-Lipid Panel Reviewed date:02/16/2024 11:11:46 AM Interpretation:Normal Performing Lab: Notes/Report: Test performed by [facility] [address] , [place] [address] Jordan Singleton MD, Roll Coverer CLIA: [id number] Cholesterol 136 <200 mg/dL Triglycerides 122 <150 mg/dL HDL Cholesterol 44 >39 mg/dL Cholesterol / HDL Ratio 3.09 0.00-4.99 Ratio Non-HDL Cholesterol 92 <130 mg/dL LDL Cholesterol (Calculation) 68 <130 mg/dL LDL Cholesterol Levels* Less than 100 mg/dL Optimal 100 to 129 mg/dL Near Optimal/ Above Optimal 130 to 159 mg/dL Borderline High 160 to 189 mg/dL High 190 mg/dL and above Very High * Categories as recommended by the 2004 ATPIII guidelines LDL/HDL Ratio 1.5 <3.3 Ratio LDL Cholesterol Patient History Test Date: 08/19/2022 LDL Results: 57 Units: mg/dL % Change: - Test Date: 07/31/2023 LDL Results: 70 Units: mg/dL % Change: +22% Test Date: 02/05/2024 LDL Results: 68 Units: mg/dL % Change: -2% P-Comprehensive Metabolic Pa minda (CMP) Reviewed date:02/16/2024 11:11:46 AM Interpretation:gluc 114 Performing Lab: Notes/Report: Test performed by [facility], [address] , [address], [place] [address] Jordan Singleton MD, Roll Coverer CLIA: [id number] Sodium 142 135-145 mmol/L Potassium 4.4 3.5-5.3 mmol/L Chloride 107 97-108 mmol/L CO2 24 22-32 mmol/L Glucose 114 65-99 mg/dL BUN 19 8-23 mg/dL Creatinine 1.16 0.70-1.30 mg/dL Calcium 10.1 8.6-10.4 mg/dL eGFR by Creatinine 70 >59 mL/min/1.73m2 Protein 6.7 6.0-8.3 g/dL Albumin 4.4 3.5-5.3 g/dL Alkaline Phosphatase 48 40-129 IU/L ALT (SGPT) 26 <5-55 IU/L AST (SGOT) 23 <5-46 IU/L Bilirubin, Total 0.5 <0.2-1.2 mg/dL A/G Ratio 1.9 1.1-2.5 CBC Venipuncture (in house) Reviewed date:02/10/2024 09:00:35 AM Interpretation: Performing Lab: Notes/Report: wbc 5.7 3.5 - 10 lymph 28.4 15 - 50 mid 6.5 2 - 15 gran 65.1 35 - 80 rbc 5.50 3.5 - 5.5 hgb 17.0 11.5 - 16.5 hct 50.2 35 - 55 mcv 91.2 75 - 100 mch 30.9 25 - 35 mchc 33.9 31 - 38 platlet 207 100 - 400 Reason For Referral No Information Medications Medication SIG (Take, Route, Frequency, Duration) Notes Start Date End Date Status traMADol HCl 50 MG 1 tablet as needed Orally 3 times a day; Duration: 30 days 01/04/2025 Active Flonase Allergy Relief 50 MCG/ACT 2 spray in each nostril Nasally Once a day; Duration: 30 day(s) 06/09/2023 Active Isosorbide Mononitrate ER 30 MG 1 tab Orally Two times a day Active Rosuvastatin Calcium 40 MG Take 1 tablet by mouth once daily; Duration: 90 Active CoQ10 100 MG 1 cap(s) orally once a day Active Metoprolol Tartrate 25 MG 1 tab(s) orall y 2 times a day; Duration: 30 days Active Aspirin 81 MG 1 tab(s) orally once a day; Duration: 30 days Active NITROGLYCERIN SPRAY 0.4/SPRAY DIRECTED SUBLINGUAL AREA PRN CHEST PAIN 07/22/2018 Active Sucralfate 1 GM 1 tablet on an empty stomach Orally 4 times a day; Duration: 30 days Active Tamsulosin HCl 0.4 MG 1 capsule Orally O nce a day; Duration: 30 day(s) Active Temazepam 30 MG 1 cap(s) orally once a day as needed (at bedtime) 11/30/2024 Active Esomeprazole Magnesium 40 MG Take 1 caps ule by mouth once daily; Duration: 90 Active Montelukast Sodium 10 MG TAKE 1 TABLET B Y MOUTH AT BEDTIME; Duration: 90 Active Immunizations Vaccine Route Administration Date Status Comme nts Tetanus Tdap-Adacel (over 7yrs) IM Intramuscular 11/02/2018 Administered Fluzone Quad (6months&older) Unknown 03/03/2018 Administered Fluzone Quad (6months&older) IM Intramuscular 03/06/2020 Administered Fluzone PF Quad (6-35 months) Unknown 02/28/2021 Administered Fluzone PF Quad (6-35 months) Unknown 01/28/2022 Administered Fluzone PF Quad (6-35 months) Unknown 02/14/2023 Administered Fluzone High Dose (65yr and older) IM Intramuscular 02/21/2019 Administered COVID 19 Moderna Unknown 01/04/2021 Administered COVID 19 Moderna Unknown 02/01/2021 Administered Problems Problem Type SNOMED Code ICD Code Onset Dates Problem Status W/U Status Risk Notes Problem Degeneration of lumbar intervertebral disc (15717212) Degenerative disc disease, lumbar (M51.36) Active confirmed Problem Mixed hyperlipidemia (553386267) Mixed hyperlipidemia (E78.2) Active confirmed Problem Primary insomnia (0083620) Primary insomnia (F51.01) Active confirmed Problem Chronic rhinitis (90008937) Chronic rhinitis (J31.0) Active confirmed Problem Chronic pansinusitis (28548844) Chronic pansinusitis (J32.4) Active confirmed Problem Sciatica (17362695) Sciatica of right side (M54.31) Active confirmed Problem Gastroesophageal reflux disease without esophagitis (173659057) Gastroesophageal reflux disease without esophagitis (K21.9) Active confirmed Problem Benign prostatic hypertrophy without outflow obstruction (590544094) Benign non-nodular prostatic hyperplasia without lower urinary tract symptoms (N40.0) Active confirmed Problem Gastroesophageal reflux disease with esophagitis (disorder) (240250299) GERD with esophagitis (K21.0) Active confirmed Problem Atherosclerotic heart disease of [place] coronary artery without angina pectoris (770051266748246) Coronary artery disease involving [place] coronary artery of [place] heart without angina pectoris (I25.10) Active confirmed Problem Osteoarthritis of knee (478444199) Primary osteoarthritis of right knee (M17.11) Active confirmed Problem Generalized arthritis (188194556) Generalized arthritis (M19.90) Active confirmed Problem Aortic valve sclerosis (10679149) Aortic valve sclerosis (I35.8) Active confirmed Problem History of placement of stent for coronary artery disease (situation) (647132091) History of coronary artery stent placement (Z95.5) Active confirmed Problem Sacroiliac joint pain (085925409) Sacroiliac joint pain (M53.3) Active confirmed Problem Gastroesophageal reflux disease (777583713) Gastroesophageal reflux disease, unspecified whether esophagitis present (K21.9) Active confirmed Problem History of COVID-19 (663420791528250297 ) History of COVID-19 (Z86.16) Active confirmed Vital Signs Heart Rate 75 /min 01/03/2025 Blood pressure diastolic 84 mm Hg 01/03/2025 Height 75 in 01/03/2025 Blood pressure systolic 150 mm Hg 01/03/2025 Weight 264.0 lbs 01/03/2025 BMI 32.99 kg/m2 01/03/2025 Encounters Encounter Location Date Provider Diagnosis [facility] [address] [facility] [address] [id number] 02/05/2024 Cinthia Marlow Mixed hyperlipidemia E78.2 and Benign non-nodular prostatic hyperplasia without lower urinary tract symptoms N40.0 [facility] [address] [place], [place] [id number] 04/05/2024 Cinthia Marlow Coronary artery dise ase involving [place] coronary artery of [place] heart without angina pectoris I25.10 ; Chronic rhinitis J31.0 ; Mixed hyperlipidemia E78.2 ; Actinic keratosis L57.0 and Generalized arthritis M19.90 [facility] [address] [place], [place] [id number] 08/02/2024 Cinthia Marlow Coronary artery dise ase involving [place] coronary artery of [place] heart without angina pectoris I25.10 ; History of coronary artery stent placement Z95.5 ; Sacroiliac joint pain M53.3 and Primary insomnia F51.01 [facility] [address] [place], [place] [id number] 01/03/2025 Cinthia Marlow History of coronary artery stent placement Z95.5 ; Coronary artery disease involving [place] coronary artery of [place] heart without angina pectoris I25.10 ; Mixed hyperlipidemia E78.2 ; Gastroesophageal reflux disease without esophagitis K21.9 ; Primary insomnia F51.01 ; Hyperglycemia R73.9 ; Benign non-nodular prostatic hyperplasia without lower urinary tract symptoms N40.0 ; Aortic valve sclerosis I35.8 ; Generalized arthritis M19.90 and Trigger thumb, right thumb M65.311 [facility] [address] [place], [place] [id number] 01/23/2024 Waqar [place] Primary insomnia F51 .01 [facility] [address] [place], [place] [id number] 02/16/2024 Cinthia Marlow [facility] [address] [facility] [address] [place], [place] [id number] 04/05/2024 Cinthia Marlow [facility] [address] [place], [place] [id number] 04/05/2024 Cinthia Marlow Primary insomnia F51 .01 [facility] [address] [place], [place] [id number] 05/03/2024 Cinthia Marlow [facility] [address] [place], [place] [id number] 07/16/2024 Cinthia Marlow [facility] [address] [place], [place] [id number] 07/19/2024 Cinthia Marlow [facility] [address] [place], [place] [id number] 11/08/2024 Waqar Morrissey Generalized arthriti s M19.90 [facility] [address] [place], [place] [id number] 11/09/2024 Cinthia Marlow [facility] [address] [place], [place] [id number] 11/29/2024 Cinthia Marlow Primary insomnia F51 .01 [facility] [address] [place], [place] [id number] 01/03/2025 Cinthia Marlow Generalized arthriti s M19.90 [facility] [address] [place], [place] [id number] 01/04/2025 Cinthia Marlow [facility] [address] [place], [place] [id number] 01/10/2025 Cinthia Marlow Assessments Encounter Date Diagnosis (ICD Code) Assessment Notes Treatment Notes Treatment Clinical Notes Section Notes 01/23/2024 Primary insomnia (ICD-10 - F51.01) 04/05/2024 Chronic rhinitis (ICD-10 - J31.0) 04/05/2024 Coronary artery disease involving [place] coronary artery of [place] heart without angina pectoris (ICD-10 - I25.10) 04/05/2024 Primary insomnia (ICD-10 - F51.01) 08/02/2024 Coronary artery disease involving [place] coronary artery of [place] heart without angina pectoris (ICD-10 - I25.10) 08/02/2024 History of coronary artery stent placement (ICD-10 - Z95.5) 11/08/2024 Generalized arthritis (ICD-10 - M19.90) 11/29/2024 Primary insomnia (ICD-10 - F51.01) 01/03/2025 Coronary artery disease involving [place] coronary artery of [place] heart without angina pectoris (ICD-10 - I25.10) 01/03/2025 History of coronary artery stent placement (ICD-10 - Z95.5) 01/03/2025 Generalized arthritis (ICD-10 - M19.90) 04/05/2024 Mixed hyperlipidemia (ICD-10 - E78.2) 08/02/2024 Sacroiliac joint pain (ICD-10 - M53.3) 01/03/2025 Mixed hyperlipidemia (ICD-10 - E78.2) 02/05/2024 Mixed hyperlipidemia (ICD-10 - E78.2) 02/05/2024 Benign non-nodular prostatic hyperplasia without lower urinary tract symptoms (ICD-10 - N40.0) 04/05/2024 Actinic keratosis (ICD-10 - L57.0) 08/02/2024 Primary insomnia (ICD-10 - F51.01) 01/03/2025 Gastroesophageal reflux disease without esophagitis (ICD-10 - K21.9) 01/03/2025 Primary insomnia (ICD-10 - F51.01) 04/05/2024 Generalized arthritis (ICD-10 - M19.90) 01/03/2025 Hyperglycemia (ICD-10 - R73.9) 01/03/2025 Benign non-nodular prostatic hyperplasia without lower urinary tract symptoms (ICD-10 - N40.0) 01/03/2025 Aortic valve sclerosis (ICD-10 - I35.8) 01/03/2025 Generalized arthritis (ICD-10 - M19.90) Tramadol 3 times a day as needed #90 RF1 01/03/2025 Trigger thumb, right thumb (ICD-10 - M65.311) Plan Of Treatment Pending Test Test Name Order Date MRI : Spine, Lumbosacral, without contra st 12/12/2022 Echocardiogram 01/03/2025 CBC 06/15/2021 COVID 19 nasal-PCR (SARS CoV-2) 06/15/19 22 Next Appt Details Provider Name:Cinthia Zamudio er, 08/01/2025 09:30:00 AM, [address], [place], [id number], Insurance Providers Payer Name Payer Address Payer Phone Subscriber Number Group Number Insured Name Patient Relationship to Insured Coverage Start Date Coverage End Date RUBIA WINKLER [address] [place], [place] [id number] CARLOS A ROUSEY Self - patient is the insured Medical (General) History Medical History History ICD Code kidney stones Acute Angina Pectoris (01/18) Chronic Coronary Artery Disease (01/18) Chronic Hyperlipidemia (01/18) Chronic Hypertension (01/18) 01/02/19 EF=65% COVID 19 Vaccine, Moderna, Feb 2020 Surgical History Surgery Date(Month/Year) hernia repair 2004 Heart Cath 07/21 [facility]- heart stent 01/04/19 Right Meniscal tear repair-Dr Villa 12/2019 Hospitalization History Reason Date(Month/Year) [facility]- acute angina pectoris 01/02-01/05/19 [facility] - Hea rt Attack 07/17/18-07/19/18
== END 2025-01-14 23:59 | disposition home or self-care (01) ==
LOC: RT 13:26
PROVIDERS: PCP Family Medicine; Visit Provider Family Medicine
DX: I25.10 Atherosclerotic heart disease of native coronary artery without angina pectoris (principal); I35.8 Other nonrheumatic aortic valve disorders; E78.5 Hyperlipidemia, unspecified; I25.2 Old myocardial infarction; R01.1 Cardiac murmur, unspecified
CPT/HCPCS: 93306